=== PATIENT | female | born 1940 | race Caucasian/White ===

== ENCOUNTER → 2018-06-11 | Outpatient (CLI) | payer OTHER, MEDICARE ==
[~2018-06-11] MED LIST: ADVAIR 500/501 EA INH; CALCIUM 500+D1 EACH; COLACE100 MG PO; CYMBALTA30 MG PO; IPRATROPIU0.2 MG/1 M NEB; LASIX20 MG PO; LEVOTHYROXINE50 MCG PO; LISINOPRIL10 MG PO; LYRICA150 MG PO; METOPROLOL SUCC50 MG PO; NAPROXEN250 MG PO; NORCO 10-325 T1 EACH PO; PLAVIX75 MG PO; POTASSIUM CHLO20 ME1 PO; SIMVASTATIN40 MG PO; SPIRIVA18 MCG INH; ULTRAM50 MG PO; VESICARE5 MG PO
--- NOTE | 2018-06-11 14:37 | Diagnostic Imaging Report ---
EXAM: CT Chest without contrast Date/time: 06/11/2018 11:00 AM INDICATION: Chest pain, shortness of breath, query lung nodule. COMPARISON: None TECHNIQUE: Chest was scanned utilizing a multidetector helical scanner from the lung apex through the level of the adrenal glands without administration of IV contrast. Coronal and sagittal reformations were obtained. Routine protocol was performed. Dose modulation, iterative reconstruction, and/or weight based adjustment of the mA/kV was utilized to reduce the radiation dose to as low as reasonably achievable. RADIATION DOSE: Total DLP: 477 mGy*cm FINDINGS: LINES/ TUBES: None. LUNGS AND AIRWAYS: The central airways are patent. There is biapical pleural-parenchymal opacity. There are bilateral pulmonary nodules. These include a 3 mm solid pulmonary nodule in the right upper lobe on series 3, image 39 and a 5 mm solid pulmonary nodule in the middle lobe on image 69. There are bilateral calcified granulomas. There are patchy dependent atelectatic changes. PLEURA: The pleural spaces are clear. HEART AND MEDIASTINUM: The thyroid gland is normal. No mediastinal, hilar or axillary lymphadenopathy. No cardiomegaly. Trace pericardial effusion. Moderate atherosclerotic calcifications of the thoracic aorta, branch vessels, and coronary vessels. The main pulmonary artery is enlarged measuring up to 3.6 cm, suggestive of pulmonary arterial hypertension. UPPER ABDOMEN: Limited non-contrast views of the upper abdomen show no abnormality within the visualized liver spleen. Partially seen right adrenal nodule (5 HU), consistent with adrenal adenoma. BONES/SOFT TISSUES: No acute bony amount. Degenerative changes of the visualized spine. IMPRESSION: No evidence of acute intrathoracic abnormality on noncontrast CT. Biapical pleural-parenchymal opacity with bilateral calcified nodules, consistent with sequela of prior granulomatous disease. Right-sided noncalcified nodules measuring up to 5 mm. These may represent noncalcified granulomas. In a patient with no other risk factor for malignancy, no further follow-up is suggested. If there is history of smoking or other risk factor for malignancy, a optional chest CT at 12 months may be considered. Enlarged main pulmonary artery measuring up to 3.6 cm, suggestive of pulmonary arterial hypertension. Signed by: Dr. Nasima Koenig MD on 06/11/2018 2:33 PM
== END ==
LOC: CT 10:44
PROVIDERS: ATTEND Internal Medicine Critical Care Medicine
DX: R91.1 Solitary pulmonary nodule (principal)
CPT/HCPCS: 71250

== ENCOUNTER → 2018-07-09 | Outpatient (RCR) | payer MEDICARE, OTHER | LOC: PT 06-16 09:52 | PROVIDERS: ATTEND Internal Medicine Critical Care Medicine | DX: G35 Multiple sclerosis (principal); M25.552 Pain in left hip; M25.551 Pain in right hip; M62.81 Muscle weakness (generalized); R26.2 Difficulty in walking, not elsewhere classified | CPT/HCPCS: 97110 ×11; 97116 ×2; 97139; 97162; 97530 ×2; G8978; G8979 ==

== ENCOUNTER → 2018-07-29 | Outpatient (CLI) | payer OTHER ==
--- NOTE | 2018-07-30 13:12 | Diagnostic Imaging Report ---
EXAM: Modified barium swallow with Speech Pathologist INDICATION: ^[id number] ^1300 ^DYSPHAGIA COMPARISON: None available. RADIATION DOSE: Fluoroscopy Time: 2.3 min Dose (Kerma) Area Product: 4.7 Gycm2 Air Kerma (AK) value has been reviewed. It is below the limits set by the Radiation Protocol Committee (RPC) committee. FINDINGS: See impression IMPRESSION: Laryngeal penetration and overt aspiration upon administration of thin liquid barium consistencies. Please see speech pathology report for detailed description and recommendations. Signed by: Dr. Zion Richards M.D. on 07/30/2018 1:09 PM
== END ==
LOC: DX 12:27
PROVIDERS: ATTEND Internal Medicine Critical Care Medicine
DX: G35 Multiple sclerosis (principal); I69.898 Other sequelae of other cerebrovascular disease; R13.10 Dysphagia, unspecified; R49.0 Dysphonia; R47.1 Dysarthria and anarthria
CPT/HCPCS: 74230

== ENCOUNTER → 2018-08-06 | Outpatient (RCR) | payer MEDICARE, OTHER | LOC: PT 07-13 13:20 → ST 08-03 12:48 | PROVIDERS: ATTEND Internal Medicine Critical Care Medicine | DX: G35 Multiple sclerosis (principal); I69.80 Unspecified sequelae of other cerebrovascular disease; R13.11 Dysphagia, oral phase; M25.552 Pain in left hip; M25.551 Pain in right hip; M62.81 Muscle weakness (generalized); R26.2 Difficulty in walking, not elsewhere classified | CPT/HCPCS: 92523; 97139 ==

== ENCOUNTER 2018-09-03 10:57 | Outpatient (RCR) | payer MEDICARE, OTHER ==
--- NOTE | 2018-08-14 10:32 | NUR ---
ST NOTE: Pt called to cx today's speech therapy session. Next apt 08/18/18
--- NOTE | 2018-08-18 11:01 | NUR ---
ST NOTE: Pt NO SHOW for PT/ST sessions today. Staff to call and check pt status. Next session 08/20/18
--- NOTE | 2018-08-24 10:20 | NUR ---
ST NOTE: Pt NO SHOW for PT/ST sessions today. Staff to call and check pt status. Next session 08/25/18
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
== END 2018-09-06 ==
LOC: ST 10:57
PROVIDERS: ATTEND Internal Medicine Critical Care Medicine
DX: G35 Multiple sclerosis (principal); I69.898 Other sequelae of other cerebrovascular disease; R13.10 Dysphagia, unspecified; R49.0 Dysphonia; R47.1 Dysarthria and anarthria

== ENCOUNTER 2018-09-07 09:53 | Outpatient (RCR) | payer MEDICARE, OTHER ==
--- NOTE | 2018-09-08 09:19 | NUR ---
ST Note: Pt cancelled session scheduled for today due to illness.
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
== END 2018-10-06 ==
LOC: ST 09:53
PROVIDERS: ATTEND Internal Medicine Critical Care Medicine
DX: G35 Multiple sclerosis (principal); I69.898 Other sequelae of other cerebrovascular disease; R49.0 Dysphonia; R47.1 Dysarthria and anarthria; R13.10 Dysphagia, unspecified

== ENCOUNTER 2018-12-05 09:46 | Observation (INO) | payer MEDICARE, OTHER ==
[~2018-12-05] VITALS: Ht 177.8 cm; Wt 88.0 kg
--- OUTSIDE RECORDS SUMMARY | 2018-12-05 09:49 | XMS REPORT ---
Author Author [facility] Address Unknown Phone Unavailable Care Team Providers Care Reading Intervention Teacher Name Role Phone PHILLIP NEIL Unavailable Unavailable Payers Payer Name Policy Type Policy Number Effective Date Expiration Date Problems This patient has no known problems. Allergies, Adverse Reactions, Alerts Allergy Name Allergy Type Status Severity Reaction(s) Onset Date Inactive Date Treating Clinician Comments propoxyphene HCl DA Active U 2018-09-09 00:00:00 glycerin DA Active U 2018-09-09 00:00:00 Penicillins DA Active U 2018-09-09 00:00:00 Sulfa (Sulfonamide Antibiotics) DA Active U 2018-09-09 00:00:00 sodium lactate DA Active U 2018-09-09 00:00:00 iodine DA Active U 2018-09-09 00:00:00 morphine DA Active U 2018-09-09 00:00:00 aspirin DA Active U 2018-09-09 00:00:00 sodium phosphate DA Active U 2018-09-09 00:00:00 codeine DA Active U 2018-09-09 00:00:00 propoxyphene HCl DA Active U 2017-06-27 00:00:00 glycerin DA Active U 2017-06-27 00:00:00 Penicillins DA Active U 2017-06-27 00:00:00 Sulfa (Sulfonamide Antibiotics) DA Active U 2017-06-27 00:00:00 sodium lactate DA Active U 2017-06-27 00:00:00 iodine DA Active U 2017-06-27 00:00:00 morphine DA Active U 2017-06-27 00:00:00 codeine DA Active U 2017-06-27 00:00:00 aspirin DA Active U 2017-06-27 00:00:00 sodium phosphate DA Active U 2017-06-27 00:00:00 Medications This patient has no known medications. Results Test Description Test Time Test Comments Text Results Atomic Results Result Comments BASIC METABOLIC PANEL 2018-10-23 19:44:00 SODIUM (test code=NA) 141 mmol/L 136-145 POTASSIUM (test code=K) 4.3 mmol/L 3.5-5.1 CHLORIDE (test code=CL) 103.0 mmol/L 98-107 CARBON DIOXIDE (test code=CO2) 33.0 mmol/L 21-32 ANION GAP (test code=GAP) 9.3 10-20 GLUCOSE (test code=GLU) 93 mg/dL 74-106 BLOOD UREA NITROGEN (test code=BUN) 29 mg/dL 7-18 GLOMERULAR FILTRATION RATE (test code=GFR) > 60 mL/min >=60 Estimated GFR by using Modified MDRD formula.Chronic kidney disease is defined as either kidney damageor GFR <60 mL/min/1.73 m2 for >3 months. CREATININE (test code=CREAT) 0.90 mg/dL 0.55-1.02 Note change in reference range due to change in reagent. BUN/CREATININE RATIO (test code=BUN/CREA) 32.2 10-20 CALCIUM (test code=CA) 9.3 mg/dL 8.5-10.1 HEPATIC FUNCTION [id number] 19:44:00* Test Item Value Reference Range Comments TOTAL PROTEIN (test code=PROT) 7.0 gram/dL 6.4-8.2 ALBUMIN (test code=ALB) 3.5 g/dL 3.4-5.0 GLOBULIN (test code=GLOB) 3.5 gram/dL 2.7-4.2 ALBUMIN/GLOBULIN RATIO (test code=A/G) 1.0 0.75-1.50 BILIRUBIN TOTAL (test code=BILT) 0.30 mg/dL 0.0-1.0 BILIRUBIN DIRECT (test code=BILD) 0.06 mg/dL 0.0-0.20 SGOT/AST (test code=AST) 24 IUnit/L 15-37 SGPT/ALT (test code=ALT) 26 IUnit/L 12-78 ALKALINE PHOSPHATASE TOTAL (test code=ALKP) 67 IUnit/L 45-117 Note change in reference range due to change in reagent. [id number] 19:44:00* Test Item Value Reference Range Comments TROPONIN-I (test code=TROPI) <0.015 ng/mL 0-0.045 URINALYSIS [id number] 19:41:00* Test Item Value Reference Range Comments UA COLOR (test code=COLU) Light-Yellow YELLOW UA APPEARANCE (test code=APPU) CLEAR CLEAR UA GLUCOSE DIPSTICK (test code=DGLUU) NEGATIVE mg/dL NEGATIVE UA BILIRUBIN DIPSTICK (test code=BILU) NEGATIVE mg/dL NEGATIVE UA KETONE DIPSTICK (test code=KETU) NEGATIVE mg/dL NEGATIVE UA SPECIFIC GRAVITY (test code=SGU) 1.015 1.001-1.035 UA BLOOD DIPSTICK (test code=YANI) Negative mg/dL NEGATIVE UA PH DIPSTICK (test code=EVI) 5.0 5.0-8.0 UA PROTEIN DIPSTICK (test code=PROU) NEGATIVE mg/dL NEGATIVE UA UROBILINIOGEN DIPSTICK (test code=URO) Normal mg/dL NEGATIVE UA NITRITE DIPSTICK (test code=SAGAR) NEGATIVE NEGATIVE UA LEUKOCYTE ESTERASE W REFLEX (test code=LEUUR) 25 John/uL (Trace) John/uL NEGATIVE UA WBC (test code=WBCU) 0-5 per HPF 0-5 UA RBC (test code=RBCU) 0-2 #/HPF 0-5 UA EPITHELIAL CELLS (test code=EPIU) FEW per HPF FEW UA BACTERIA (test code=BACU) FEW #/HPF NONE UA MUCUS (test code=MUCU) FEW #/LPF FEW Urine Source? Clean CatchURINALYSIS [id number] 19:39:00* Test Item Value Reference Range Comments UA COLOR (test code=COLU) Light-Yellow YELLOW UA APPEARANCE (test code=APPU) CLEAR CLEAR UA GLUCOSE DIPSTICK (test code=DGLUU) NEGATIVE mg/dL NEGATIVE UA BILIRUBIN DIPSTICK (test code=BILU) NEGATIVE mg/dL NEGATIVE UA KETONE DIPSTICK (test code=KETU) NEGATIVE mg/dL NEGATIVE UA SPECIFIC GRAVITY (test code=SGU) 1.015 1.001-1.035 UA BLOOD DIPSTICK (test code=YANI) Negative mg/dL NEGATIVE UA PH DIPSTICK (test code=EVI) 5.0 5.0-8.0 UA PROTEIN DIPSTICK (test code=PROU) NEGATIVE mg/dL NEGATIVE UA UROBILINIOGEN DIPSTICK (test code=URO) Normal mg/dL NEGATIVE UA NITRITE DIPSTICK (test code=SAGAR) NEGATIVE NEGATIVE UA LEUKOCYTE ESTERASE W REFLEX (test code=LEUUR) 25 John/uL (Trace) John/uL NEGATIVE UA WBC (test code=WBCU) per HPF 0-5 UA RBC (test code=RBCU) per HPF 0-5 UA EPITHELIAL CELLS (test code=EPIU) per HPF Few UA BACTERIA (test code=BACU) per HPF NONE Urine Source? Clean CatchBASIC METABOLIC [id number] 19:38:00* Test Item Value Reference Range Comments SODIUM (test code=NA) 141 mmol/L 136-145 POTASSIUM (test code=K) 4.3 mmol/L 3.5-5.1 CHLORIDE (test code=CL) 103.0 mmol/L 98-107 CARBON DIOXIDE (test code=CO2) mmol/L 21-32 ANION GAP (test code=GAP) 10-20 GLUCOSE (test code=GLU) mg/dL 74-106 BLOOD UREA NITROGEN (test code=BUN) mg/dL 7-18 GLOMERULAR FILTRATION RATE (test code=GFR) mL/min >=60 CREATININE (test code=CREAT) mg/dL 0.55-1.02 BUN/CREATININE RATIO (test code=BUN/CREA) 10-20 CALCIUM (test code=CA) mg/dL 8.5-10.1 HEPATIC FUNCTION [id number] 19:38:00* Test Item Value Reference Range Comments TOTAL PROTEIN (test code=PROT) gram/dL 6.4-8.2 ALBUMIN (test code=ALB) g/dL 3.4-5.0 GLOBULIN (test code=GLOB) gram/dL 2.7-4.2 ALBUMIN/GLOBULIN RATIO (test code=A/G) 0.75-1.50 BILIRUBIN TOTAL (test code=BILT) mg/dL 0.0-1.0 BILIRUBIN DIRECT (test code=BILD) mg/dL 0.0-0.20 SGOT/AST (test code=AST) IUnit/L 15-37 SGPT/ALT (test code=ALT) IUnit/L 12-78 ALKALINE PHOSPHATASE TOTAL (test code=ALKP) IUnit/L 45-117 [id number] 19:38:00* Test Item Value Reference Range Comments TROPONIN-I (test code=TROPI) ng/mL 0-0.045 CBC W/AUTO [id number] 19:21:00* Test Item Value Reference Range Comments WHITE BLOOD CELL (test code=WBC) 7.9 K/mm3 4.5-12.5 RED BLOOD CELL (test code=RBC) 4.34 mill/mm3 3.7-5.2 HEMOGLOBIN (test code=HGB) 13.6 gram/dL 11.5-15.5 HEMATOCRIT (test code=HCT) 43.0 % 36.0-46.0 MEAN CELL VOLUME (test code=MCV) 99.1 fL 80-98 MEAN CELL HGB (test code=MCH) 31.3 picogram 27.0-33.0 MEAN CELL HGB CONCETRATION (test code=MCHC) 31.6 gram/dL 33.0-36.0 RED CELL DISTRIBUTION WIDTH (test code=RDW) 13.6 % 11.6-16.2 RED CELL DISTRIBUTION WIDTH SD (test code=RDW-SD) 49.7 fL 37.0-51.0 PLATELET COUNT (test code=PLT) 154 K/mm3 150-450 MEAN PLATELET VOLUME (test code=MPV) 11.0 fL 6.7-11.0 NEUTROPHIL % (test code=NT%) 51.4 % 39.0-69.0 IMMATURE GRANULOCYTE % (test code=IG%) 0.1 % 0.0-5.0 LYMPHOCYTE % (test code=LY%) 36.7 % 25.0-55.0 MONOCYTE % (test code=MO%) 9.0 % 0.0-10.0 EOSINOPHIL % (test code=EO%) 2.3 % 0.0-5.0 BASOPHIL % (test code=BA%) 0.5 % 0.0-1.0 NUCLEATED RBC % (test code=NRBC%) 0.0 % 0-0 NEUTROPHIL # (test code=NT#) 4.08 K/mm3 1.8-7.7 IMMATURE GRANULOCYTE # (test code=IG#) 0.01 x10 3/uL 0-0.03 LYMPHOCYTE # (test code=LY#) 2.91 K/mm3 1.0-5.0 MONOCYTE # (test code=MO#) 0.71 K/mm3 0-0.8 EOSINOPHIL # (test code=EO#) 0.18 K/mm3 0.0-0.5 BASOPHIL # (test code=BA#) 0.04 K/mm3 0.0-0.2 NUCLEATED RBC # (test code=NRBC#) 0.00 K/mm3 0.0-0.1 MANUAL DIFF REQUIRED (test code=MDIFF) NO - XR PELVIS 1/2 [id number] 18:46:00 FAX: Rose Starkey MD [phone] [place]: St: [facility] FAX: Dawson Arias DO Name: LEENA ESTRADA [facility] : 1940 Age/S: 78/F [address] [facility] Unit #: [id number] Loc: [place] [address] Phys: Dawson Arias DO Acct: [id number] Dis Date: Status: REG ER PHONE #: [phone] Exam Date: 10/23/2018 1815 FAX #: [phone] Reason: fall EXAMS: CPT CODE: [id number] XR PELVIS 1/2 VIEWS 71302 REASON FOR EXAM: fall EXAM ORDER DATE: 5:44 PM Ordering MSánchez: Dawson Arias DO PROC EDURE: - XR PELVIS 1/2 VIEWS FINDINGS: 1 view of the pelvis was o btained. The osseous structures are unremarkable in size and shape with a gamma nail present in the proximal left femur. The joint spaces are mainta ined. No evidence of fracture. There is normal alignment of the hip joint . The sacroiliac joints are grossly intact IMPRES JANETH: Unremarkable pelvis Electronically Signed by Megan Hudson on 0 10/23/2018 at 1846 Reported and signed by: Nj Hudson M.D. CC: Rose Gilmore MD; Dawson Arias DO Technologist: Lupis Soto(Marianela) Trnscrd Da te/Time/By: 10/23/2018 (1845) : By: DanielL Orig Print D/T: S: 10/23 (1848) PAGE 1 Signed Report - XR SACRUM/COCCYX 2 + [id number] 18:45:00 FAX: Rose Starkey MD [phone] [place]: St: [facility] FAX: Dawson Arias DO Name: LEENA ESTRADA [facility] : 1940 Age/S: 78/F [address] [facility] Unit #: [id number] Loc: [place] [address] Phys: Dawson Arias DO Acct: [id number] Dis Date: Status: REG ER PHONE #: [phone] Exam Date: 10/23/2018 1810 FAX #: [phone] Reason: fall EXAMS: CPT CODE: [id number] XR SACRUM/COCCYX 2 + V 28939 REASON FOR EXAM: fall EXAM ORDER DATE: 10/23/2018 5:44 PM Ordering Megan: Dawson Arias DO PROCEDURE: - XR SACRUM/COCCYX 2 + V FINDINGS: 3 views of the sacrum and coccyx were obtained. The osseous structures are unrema rkable in size and shape. The sacroiliac joints are maintained. No eviden ce of fracture. IMPRESSION: Unremarkable sacrum and coccyx at 1845 Reported and signed by: Nj Hudson M.D. CC: Rose Fabian MD; Dawson Arias DO Technologist: Lupis Soto(Marianela) Trnscrd Date/Time/By: 10/23/2018 (1844 ) : By: TimoteoVTL Orig Print D/T: S: 10/23/2018 (6751) PAGE 1 Signed Report - XR CHEST 1 [id number] 18:33:00 FAX: Rose Starkey MD [phone] [place]: St: REG FAX: Dawson Arias DO Name: LEENA ESTRADA [facility] : 1940 Age/S: 78/F [address] [facility] Unit #: [id number] Loc: [place] [address] Phys: Dawson Arias DO Acct: [id number] Dis Date: Status: REG ER PHONE #: [phone] Exam Date: 10/23/2018 1805 FAX #: [phone] Reason: Altered Mental Status EXAMS: CPT CODE: [id number] XR CHEST 1 V 62849 REASON FOR EXAM: Altered Mental Status Exam Order Date: 10/23/2018 5:44 PM Ordering Megan: Dawson Arias DO PROCEDURE: - XR CHEST 1 V COMPARISON: AP chest x-ray September 09, 2018 FINDINGS: Lung volumes are slightly diminish ed and there are subsegmental atelectatic changes in the lung bases, more pronounced on the left side. The upper lungs are clear. The costophrenic s ulci are sharp. The cardiomediastinal silhouette is slightly promi nent but stable in size. Degenerative changes of the left ac romioclavicular joint and other musculoskeletal findings are stable. IMPRESSION: Low lung volumes with bibasilar subsegmental atel ectasis, worse on the left side. at 1833 Reported and signed b y: Gilberto Salgado MD CC: Rose Gilmore MD; Dawson Arias DO Technologist: Lupis Soto(Marianela) Trnscrd Date/Time/By: 10/23/2018 (1832) : By: [email or web address] Orig Print D/T : S: 10/23/2018 (1835) PAGE 1 Sig lisa Report - CT HEAD/BRAIN W/O [id number] 18:01:00 Name: LEENA ESTRADA [facility] : 1940 Age/S: 78 / F [address] [facility] Unit #: [id number] Loc: [place] [address] Phys: Dawson Arias DO Acct: [id number] Dis Date: Status: REG ER PHONE #: [phone] Exam Date: 10/23/2018 1751 FAX #: [phone] Reason: Altered Mental Status EXAMS: CPT CODE: [id number] CT HEAD/BRAIN W/O CONT 35390 REASON FOR EXAM: Altered Mental Status EXAM ORDER DATE: 10/23/2018 5:44 PM Ordering Megan: Dawson Arias DO PROCEDURE: - CT HEAD/BRAIN W/O CONT COMPARISON: 09/09/2018 FINDINGS: CT images of the brain were obtained without IV contrast. Dose modulation, iterative reconstruction, and/or weight based adjustment of the MA/KV was utilized to reduce the radiation dose to as low as reasonably achievable. The brain parenchyma is within normal limits. The sequeira-white matter delineation is unremarkable. The ventricles, cisterns, and sulci are unremarkable. There is no evidence of hemorrhage, mass, mass effect. There is no evidence of acute or old infarct. The calvarium is intact. IMPRESSION: Unremarkable brain. at 1801 Reported and signed by: Nj Hudson M.D. CC: Rose Gilmore MD; Dawson Arias DO Technologist:Taisha Whitehead RT(R); ARSHAD Mason CTDI: DLP: Trnscb Date/Time: 10/23/2018 (1800) Lynne Orig Print D/T: S: 10/23/2018 (2678) PAGE 1 Signed Report - XR L-SPINE 4 + [id number] 10:38:00 FAX: Rose Starkey MD [phone] [place]: St: [facility] FAX: Van Pickard MD [phone] Name: SEANLEENA SEN [facility] : 1940 Age/S: 78/F [address] [facility] Unit #: [id number] Loc: [address] [place] [address] Phys: Van Mondragon MD Acct: [id number] Dis Date: Status: ADM IN PHONE #: [phone] Exam Date: 09/10/2018 1020 FAX #: [phone] Reason: pain EXAMS: CPT CODE: [id number] XR L-SPINE 4 + VIEWS 69157 HISTORY: Pain. COMPARISON: None available. 3 views of the left hip: Gamma nail in good position within the left hip. Healing intertrochanteric fracture. Narrowed hip joint without AVN. Pelvic ring appears intact on a single view. Symphysis is well op posed. SI joints are unremarkable. Narrowed right hip joint is well. DJD o f the lower lumbar spine. Soft tissues and mineralization are normal. IMPRESSION: Gamma nail in good position within the left hip without fracture. Narrowed hip joint without AVN. Lumbar spine series, 5 views: Vertebral body h eights are maintained. Grade 2 anterolisthesis of L5 over S1. No obvious spondylolysis is visible but difficult to assess due to sclerosis. Ante rior marginal osteophytes. Vascular calcifications. Facet arthropathy th roughout the lumbar spine with posterolateral hypertrophic changes at L4 -L5 and L5-S1 level especially. IMPRESSION: Grade 2 anterolisthesis of L5 over S1 without acute fracture or spondylolysis. Vertebral body heights are maintained. DJD. Mode berumen Signed by Megan Gramajo on 09/10/2018 at 1038 Reported and signed by: Varghese Gramajo M.D. CC: Rose Gilmore MD; Van Mondragon Technologist: PARADISE PEARCE, (R); Alanna Soto(R) Trnwyrd Date/Time/By: 09/10/2018 (1038) : By: [email or web address] Orig Print D/T: S: 09/10/2018 (9933) PAGE 1 Signed Report - XR HIP W/PEL UNI 2+V [id number] 10:38:00 FAX: Rose Starkey MD [phone] [place]: St: [facility] FAX: Van Pickard MD [phone] Name: LEENA ESTRADA [facility] : 1940 Age/S: 78/F [address] [facility] Unit #: [id number] Loc: [address] [place] [address] Phys: Van Mondragon MD Acct: [id number] Dis Date: Status: ADM IN PHONE #: [phone] Exam Date: 09/10/2018 1010 FAX #: [phone] Reason: pain EXAMS: CPT CODE: [id number] XR HIP W/PEL UNI 2+[place] [address] HISTORY: Pain. COMPARISON: None available. 3 views of the left hip: Gamma nail in good position within the left hip. Healing intertrochanteric fracture. Narrowed hip joint without AVN. Pelvic ring appears intact on a single view. Symphysis is well opposed. SI joints are unremarkable. Narrowed right hip joint is well. DJD of the lower lumbar spine. Soft tissues and mineralization are normal. IMPRESSION: Gamma nail in good position within the left hip without fracture. Narrowed hip joint without AVN. Lumbar spine series, 5 views: Vertebral body heights are maintained. Grade 2 anterolisthesis of L5 over S1. No obvious spondylolysis is visible but difficult to assess due to sclerosis. Ante rior marginal osteophytes. Vascular calcifications. Facet arthropathy th roughout the lumbar spine with posterolateral hypertrophic changes at L4 -L5 and L5-S1 level especially. IMPRESSION: Grade 2 anterolisthesis of L5 over S1 without acute fracture or spondylolysis. Vertebral body heights are maintained. DJD. Mode berumen Signed by Megan Gramajo on 09/10/2018 at 1038 Reported and signed by: Varghese Gramajo M.D. CC: Rose Gilmore MD; Van Mondragon Technologist: RT RADHA(R); Alanna Soto(R) Trnscrd Date/Time/By: 09/10/2018 (1038) : By: [email or web address] Orig Print D/T: S: 09/10/2018 (1041) PAGE 1 Signed Report BASIC METABOLIC PANEL 2018-09-10 05:28:00* Test Item Value Reference Range Comments SODIUM (test code=NA) 143 mmol/L 136-145 POTASSIUM (test code=K) 4.8 mmol/L 3.5-5.1 CHLORIDE (test code=CL) 108.0 mmol/L 98-107 CARBON DIOXIDE (test code=CO2) 32.0 mmol/L 21-32 ANION GAP (test code=GAP) 7.8 10-20 GLUCOSE (test code=GLU) 103 mg/dL 74-106 BLOOD UREA NITROGEN (test code=BUN) 21 mg/dL 7-18 GLOMERULAR FILTRATION RATE (test code=GFR) > 60 mL/min >=60 Estimated GFR by using Modified MDRD formula.Chronic kidney disease is defined as either kidney damageor GFR <60 mL/min/1.73 m2 for >3 months. CREATININE (test code=CREAT) 0.80 mg/dL 0.55-1.02 Note change in reference range due to change in reagent. BUN/CREATININE RATIO (test code=BUN/CREA) 26.3 10-20 CALCIUM (test code=CA) 8.6 mg/dL 8.5-10.1 BASIC METABOLIC [id number] 05:23:00* Test Item Value Reference Range Comments SODIUM (test code=NA) 143 mmol/L 136-145 POTASSIUM (test code=K) 4.8 mmol/L 3.5-5.1 CHLORIDE (test code=CL) 108.0 mmol/L 98-107 CARBON DIOXIDE (test code=CO2) mmol/L 21-32 ANION GAP (test code=GAP) 10-20 GLUCOSE (test code=GLU) mg/dL 74-106 BLOOD UREA NITROGEN (test code=BUN) mg/dL 7-18 GLOMERULAR FILTRATION RATE (test code=GFR) mL/min >=60 CREATININE (test code=CREAT) mg/dL 0.55-1.02 BUN/CREATININE RATIO (test code=BUN/CREA) 10-20 CALCIUM (test code=CA) mg/dL 8.5-10.1 CBC W/AUTO [id number] 05:02:00* Test Item Value Reference Range Comments WHITE BLOOD CELL (test code=WBC) 8.1 K/mm3 4.5-12.5 RED BLOOD CELL (test code=RBC) 4.71 mill/mm3 3.7-5.2 HEMOGLOBIN (test code=HGB) 14.3 gram/dL 11.5-15.5 HEMATOCRIT (test code=HCT) 48.3 % 36.0-46.0 MEAN CELL VOLUME (test code=MCV) 102.5 fL 80-98 MEAN CELL HGB (test code=MCH) 30.4 picogram 27.0-33.0 MEAN CELL HGB CONCETRATION (test code=MCHC) 29.6 gram/dL 33.0-36.0 RED CELL DISTRIBUTION WIDTH (test code=RDW) 13.6 % 11.6-16.2 RED CELL DISTRIBUTION WIDTH SD (test code=RDW-SD) 52.4 fL 37.0-51.0 PLATELET COUNT (test code=PLT) 164 K/mm3 150-450 MEAN PLATELET VOLUME (test code=MPV) 10.5 fL 6.7-11.0 NEUTROPHIL % (test code=NT%) 41.7 % 39.0-69.0 IMMATURE GRANULOCYTE % (test code=IG%) 0.2 % 0.0-5.0 LYMPHOCYTE % (test code=LY%) 45.9 % 25.0-55.0 MONOCYTE % (test code=MO%) 9.6 % 0.0-10.0 EOSINOPHIL % (test code=EO%) 2.1 % 0.0-5.0 BASOPHIL % (test code=BA%) 0.5 % 0.0-1.0 NUCLEATED RBC % (test code=NRBC%) 0.0 % 0-0 NEUTROPHIL # (test code=NT#) 3.38 K/mm3 1.8-7.7 IMMATURE GRANULOCYTE # (test code=IG#) 0.02 x10 3/uL 0-0.03 LYMPHOCYTE # (test code=LY#) 3.72 K/mm3 1.0-5.0 MONOCYTE # (test code=MO#) 0.78 K/mm3 0-0.8 EOSINOPHIL # (test code=EO#) 0.17 K/mm3 0.0-0.5 BASOPHIL # (test code=BA#) 0.04 K/mm3 0.0-0.2 NUCLEATED RBC # (test code=NRBC#) 0.00 K/mm3 0.0-0.1 CBC W/AUTO [id number] 05:00:00* Test Item Value Reference Range Comments WHITE BLOOD CELL (test code=WBC) K/mm3 4.5-12.5 RED BLOOD CELL (test code=RBC) mill/mm3 3.7-5.2 HEMOGLOBIN (test code=HGB) 14.3 gram/dL 11.5-15.5 HEMATOCRIT (test code=HCT) % 36.0-46.0 MEAN CELL VOLUME (test code=MCV) fL 80-98 MEAN CELL HGB (test code=MCH) picogram 27.0-33.0 MEAN CELL HGB CONCETRATION (test code=MCHC) gram/dL 33.0-36.0 RED CELL DISTRIBUTION WIDTH (test code=RDW) % 11.6-16.2 RED CELL DISTRIBUTION WIDTH SD (test code=RDW-SD) fL 37.0-51.0 PLATELET COUNT (test code=PLT) K/mm3 150-450 MEAN PLATELET VOLUME (test code=MPV) fL 6.7-11.0 NEUTROPHIL % (test code=NT%) % 39.0-69.0 IMMATURE GRANULOCYTE % (test code=IG%) % 0.0-5.0 LYMPHOCYTE % (test code=LY%) % 25.0-55.0 MONOCYTE % (test code=MO%) % 0.0-10.0 EOSINOPHIL % (test code=EO%) % 0.0-5.0 BASOPHIL % (test code=BA%) % 0.0-1.0 NEUTROPHIL # (test code=NT#) K/mm3 1.8-7.7 LYMPHOCYTE # (test code=LY#) K/mm3 1.0-5.0 MONOCYTE # (test code=MO#) K/mm3 0-0.8 EOSINOPHIL # (test code=EO#) K/mm3 0.0-0.5 BASOPHIL # (test code=BA#) K/mm3 0.0-0.2 THYROID PROFILE [id number] 20:50:00* Test Item Value Reference Range Comments T3 UPTAKE (test code=T3UP) 32.0 % 30.0-40.0 T4 (THYROXINE) (test code=T4) 5.6 ug/dL 4.5-13.9 T7 (FREE THYROXINE INDEX) (test code=T7) 1.79 FTI 1.3-5.1 THYROID STIMULATING HORMONE (test code=TSH) 2.560 uIU/mL 0.36-3.74 TSH REFERENCE RANGES: EUTHYROID: 0.35 - 4.3 mIU/mL HYPO : > 5.5 mIU/mL HYPER : < 0.35 mIU/mL CREATINE KINASE (CK)2018-09-09 20:42:00* Test Item Value Reference Range Comments CREATINE KINASE (CK) (test code=CK) 65 IUnit/L 26-208 [id number] 20:42:00* Test Item Value Reference Range Comments TROPONIN-I (test code=TROPI) <0.015 ng/mL 0-0.045 COMMENTS TO COMPLIANCE MGR: COLLECT 3 HOURS AFTER PREVIOUS [id number] 17:04:00* Test Item Value Reference Range Comments TROPONIN-I (test code=TROPI) <0.015 ng/mL 0-0.045 COMMENTS TO COMPLIANCE MGR: COLLECT 3 HOURS AFTER PREVIOUS SAMPLEURINALYSIS [id number] 16:25:00* Test Item Value Reference Range Comments UA COLOR (test code=COLU) YELLOW YELLOW UA APPEARANCE (test code=APPU) SLIGHTLY CLOUDY CLEAR UA GLUCOSE DIPSTICK (test code=DGLUU) NEGATIVE mg/dL NEGATIVE UA BILIRUBIN DIPSTICK (test code=BILU) NEGATIVE mg/dL NEGATIVE UA KETONE DIPSTICK (test code=KETU) NEGATIVE mg/dL NEGATIVE UA SPECIFIC GRAVITY (test code=SGU) 1.014 1.001-1.035 UA BLOOD DIPSTICK (test code=YANI) 3+ (Large) mg/dL NEGATIVE UA PH DIPSTICK (test code=EVI) 6.0 5.0-8.0 UA PROTEIN DIPSTICK (test code=PROU) NEGATIVE mg/dL NEGATIVE UA UROBILINIOGEN DIPSTICK (test code=URO) NEGATIVE mg/dL NEGATIVE UA NITRITE DIPSTICK (test code=SAGAR) POSITIVE NEGATIVE UA LEUKOCYTE ESTERASE W REFLEX (test code=LEUUR) 2+ John/uL NEGATIVE UA WBC (test code=WBCU) 11-20 per HPF 0-5 UA RBC (test code=RBCU) >20 #/HPF 0-5 UA EPITHELIAL CELLS (test code=EPIU) FEW per HPF FEW UA BACTERIA (test code=BACU) MODERATE #/HPF NONE UA MUCUS (test code=MUCU) FEW #/LPF FEW Urine Source? Clean CatchURINALYSIS [id number] 16:22:00* Test Item Value Reference Range Comments UA COLOR (test code=COLU) YELLOW YELLOW UA APPEARANCE (test code=APPU) SLIGHTLY CLOUDY CLEAR UA GLUCOSE DIPSTICK (test code=DGLUU) NEGATIVE mg/dL NEGATIVE UA BILIRUBIN DIPSTICK (test code=BILU) NEGATIVE mg/dL NEGATIVE UA KETONE DIPSTICK (test code=KETU) NEGATIVE mg/dL NEGATIVE UA SPECIFIC GRAVITY (test code=SGU) 1.014 1.001-1.035 UA BLOOD DIPSTICK (test code=YANI) 3+ (Large) mg/dL NEGATIVE UA PH DIPSTICK (test code=EVI) 6.0 5.0-8.0 UA PROTEIN DIPSTICK (test code=PROU) NEGATIVE mg/dL NEGATIVE UA UROBILINIOGEN DIPSTICK (test code=URO) NEGATIVE mg/dL NEGATIVE UA NITRITE DIPSTICK (test code=SAGAR) POSITIVE NEGATIVE UA LEUKOCYTE ESTERASE W REFLEX (test code=LEUUR) 2+ John/uL NEGATIVE UA WBC (test code=WBCU) per HPF 0-5 Urine Source? Clean CatchB-TYPE NATRIURETIC [id number] 15:35:00* Test Item Value Reference Range Comments B-TYPE NATRIURETIC PEPTIDE (test code=BNP) 11.56 pgram/mL 0-100 BASIC METABOLIC [id number] 13:14:00* Test Item Value Reference Range Comments SODIUM (test code=NA) 141 mmol/L 136-145 POTASSIUM (test code=K) 4.6 mmol/L 3.5-5.1 CHLORIDE (test code=CL) 104.0 mmol/L 98-107 CARBON DIOXIDE (test code=CO2) 31.0 mmol/L 21-32 ANION GAP (test code=GAP) 10.6 10-20 GLUCOSE (test code=GLU) 112 mg/dL 74-106 BLOOD UREA NITROGEN (test code=BUN) 23 mg/dL 7-18 GLOMERULAR FILTRATION RATE (test code=GFR) > 60 mL/min >=60 Estimated GFR by using Modified MDRD formula.Chronic kidney disease is defined as either kidney damageor GFR <60 mL/min/1.73 m2 for >3 months. CREATININE (test code=CREAT) 0.80 mg/dL 0.55-1.02 Note change in reference range due to change in reagent. BUN/CREATININE RATIO (test code=BUN/CREA) 28.8 10-20 CALCIUM (test code=CA) 9.9 mg/dL 8.5-10.1 HEPATIC FUNCTION [id number] 13:14:00* Test Item Value Reference Range Comments TOTAL PROTEIN (test code=PROT) 7.3 gram/dL 6.4-8.2 ALBUMIN (test code=ALB) 4.0 g/dL 3.4-5.0 GLOBULIN (test code=GLOB) 3.3 gram/dL 2.7-4.2 ALBUMIN/GLOBULIN RATIO (test code=A/G) 1.2 0.75-1.50 BILIRUBIN TOTAL (test code=BILT) 0.70 mg/dL 0.0-1.0 BILIRUBIN DIRECT (test code=BILD) 0.17 mg/dL 0.0-0.20 SGOT/AST (test code=AST) 25 IUnit/L 15-37 SGPT/ALT (test code=ALT) 33 IUnit/L 12-78 ALKALINE PHOSPHATASE TOTAL (test code=ALKP) 66 IUnit/L 45-117 Note change in reference range due to change in reagent. [id number] 13:14:00* Test Item Value Reference Range Comments TROPONIN-I (test code=TROPI) <0.015 ng/mL 0-0.045 PROTHROMBIN [id number] 13:03:00* Test Item Value Reference Range Comments PROTHROMBIN TIME PATIENT (test code=PTP) 11.3 seconds 9.0-14.0 INTERNATIONAL NORMAL RATIO (test code=INR) 1.0 0.8-1.2 The therapeutic range for oral anticoagulant therapy formost indications is an international normalized ratio (INR)of between 2.0 and 3.0. The recommended therapeutic INRrange for various clinical situations is listed below: Clinical Situation INR range Pulmonary e mbolism treatment (2.0-3.0)Venous thrombosis treatmentVenous thrombosis prophylaxis (high risk surgery)Prevention of systemic embolism from: Acute myocardial infarction Valvular heart disease Atrial fibrillation Mechanical prosthetic heart valves (2.5-3.5) IS PATIENT ON ANTICOAGULANTS? NTHROMBOPLASTIN TIME [id number] 13:03:00* Test Item Value Reference Range Comments THROMBOPLASTIN TIME PARTIAL (test code=PTT) 24.3 seconds 25.0-36.5 IS PATIENT ON ANTICOAGULANTS? NCBC W/AUTO [id number] 12:41:00* Test Item Value Reference Range Comments WHITE BLOOD CELL (test code=WBC) 8.2 K/mm3 4.5-12.5 RED BLOOD CELL (test code=RBC) 5.11 mill/mm3 3.7-5.2 HEMOGLOBIN (test code=HGB) 16.0 gram/dL 11.5-15.5 HEMATOCRIT (test code=HCT) 50.2 % 36.0-46.0 MEAN CELL VOLUME (test code=MCV) 98.2 fL 80-98 MEAN CELL HGB (test code=MCH) 31.3 picogram 27.0-33.0 MEAN CELL HGB CONCETRATION (test code=MCHC) 31.9 gram/dL 33.0-36.0 RED CELL DISTRIBUTION WIDTH (test code=RDW) 13.6 % 11.6-16.2 RED CELL DISTRIBUTION WIDTH SD (test code=RDW-SD) 50.0 fL 37.0-51.0 PLATELET COUNT (test code=PLT) 159 K/mm3 150-450 MEAN PLATELET VOLUME (test code=MPV) 10.6 fL 6.7-11.0 NEUTROPHIL % (test code=NT%) 57.0 % 39.0-69.0 IMMATURE GRANULOCYTE % (test code=IG%) 0.4 % 0.0-5.0 LYMPHOCYTE % (test code=LY%) 34.2 % 25.0-55.0 MONOCYTE % (test code=MO%) 6.9 % 0.0-10.0 EOSINOPHIL % (test code=EO%) 0.9 % 0.0-5.0 BASOPHIL % (test code=BA%) 0.6 % 0.0-1.0 NUCLEATED RBC % (test code=NRBC%) 0.0 % 0-0 NEUTROPHIL # (test code=NT#) 4.68 K/mm3 1.8-7.7 IMMATURE GRANULOCYTE # (test code=IG#) 0.03 x10 3/uL 0-0.03 LYMPHOCYTE # (test code=LY#) 2.81 K/mm3 1.0-5.0 MONOCYTE # (test code=MO#) 0.57 K/mm3 0-0.8 EOSINOPHIL # (test code=EO#) 0.07 K/mm3 0.0-0.5 BASOPHIL # (test code=BA#) 0.05 K/mm3 0.0-0.2 NUCLEATED RBC # (test code=NRBC#) 0.00 K/mm3 0.0-0.1 MANUAL DIFF REQUIRED (test code=MDIFF) NO - XR CHEST 1 [id number] 12:34:00 FAX: Rose Starkey MD [phone] [place]: St: REG FAX: Lev Leung MD [phone] Name: LEENA ESTRADA [facility] : 1940 Age/S: 78/F [address] [facility] Unit #: [id number] Loc: [place] [address] Phys: Lev Leung MD Acct: [id number] Dis Date: Status: REG ER PHONE #: [phone] Exam Date: 09/09/2018 1225 FAX #: [phone] Reason: Altered Mental Status EXAMS: CPT CODE: [id number] XR CHEST 1 V 81432 HISTORY: Confusion. COMPARISON: Chest x-ray from February 03, 2017. No acute infiltrates, effusion or congestion is noted. Scarring in both lung bases. The cardiac and mediastinal silhouette are within normal limits. IMPRESSION: No acute infiltrates, effusion or congestion. at 1234 Reported and signed by: Varghese Gramajo M.D. CC: Rose Gilmore MD; Lev Leung MD Technologist: Alanna Mirza) Trnscrd Date/Time/By: 09/09/2018 (7392) : By: [email or web address] Orig Print D/T: S: 09/09/2018 (1080) PAGE 1 Signed Report - CT HEAD/BRAIN W/O [id number] 12:27:00 Name: LEENA ESTRADA [facility] : 1940 Age/S: 78 / F [facility] Unit #: [id number] Loc: [place] [address] Phys: Lev Leung MD Acct: [id number] Dis Date: Status: REG ER PHONE #: [phone] Exam Date: 09/09/2018 1207 FAX #: [phone] Reason: Altered Mental Status EXAMS: CPT CODE: [id number] CT HEAD/BRAIN W/O CONT 14094 HISTORY: Confusion. COMPARISON: July 20162015. CT brain without contrast: Automated exposure control. No acute intracranial bleeds or extra-axial collections are noted. No acute territorial vascular infarction is noted. The sulci, gyri, ventricles and subarachnoid spaces and the basilar cisterns are normal for patient's age. No herniation or hydrocephalus or midline shift is noted. Mild periventricular ischemic gliosis is noted. Age-appropriate atrophy is noted as well. Portions of the visualized paranasal sinuses are normal. Extensive sclerosis of the mastoid air cells with under pneumatization bilaterally. No obvious bony calvarial defect is noted. IMPRESSION: No acute intracranial bleeds or extra-axial collections. No acute territorial vascular infarction. No herniation or hydrocephalus or midline shift. Chronic white matter ischemic disease and atrophy . at 1227 Reported and signed by: Varghese Gramajo M.D. CC: Rose Gilmore MD; Lev Leung MD Technologist:Sergio Quarles RT(R),(MR),(CT) CTDI: DLP: Trnscb Date/Time: 09/09/2018 (1227) t.[email or web address] Orig Print D/T: S: 09/09/2018 (1230) CTDI: DLP: PAGE 1 Signed Report MODIFIED BA. JETT 2018-07-30 13:08:00 [place] [address] Patient Name: WILVER ESTRADA MR #: [id number] : 1940 Age/Sex: 78/F Req #: [id number] Adm Physician: Ordered by: PHILLIP NEIL MD Report #: [id number] Location: DX Room/Bed: Procedure: DX/MODIF IED BA. SWALLOW Exam Date: 07/29/18 Exam Time: 1300 REPORT STATUS: Signed EXAM: Melida fied barium swallow with Speech Pathologist INDICATION: [id number] 1 300 DYSPHAGIA COMPARISON: None available. RADIATION DOSE: Fluor oscopy Time: 2.3 min Dose (Kerma) Area Product: 4.7 Gycm2 Air K kathleen (AK) value has been reviewed. It is below the limits set by the Radiation Protocol Committee (RPC) committee. FINDINGS: See impression IMPRE SSION: Laryngeal penetration and overt aspiration upon administration of th in liquid barium consistencies. Please see speech pathology report for detaile d description and recommendations. Signed by: Dr. Orlando Richards M.D. on 07/30/2018 1:09 PM Dictated By: ORLANDO RICHARDS MD 1301 Transcribed By: LEOPOLDO on 9 1309 COPY TO: PHILLIP NEIL MD CT CHEST [id number] 14:20:00 [place] [address] Patient Name: WILVER ESTRADA MR #: [id number] : 1940 Age/Sex: 78/F Req #: [id number] Adm Physician: Ordered by: PHILLIP NEIL MD Report #: [id number] Location: CT Room/Bed: Procedure: [id number] CT/CT CH EST WO Exam Date: 06/11/18 Exam Time: 1120 REPORT STATUS: Signed EXAM: CT Chest with out contrast Date/time: 06/11/2018 11:00 AM INDICATION: Chest pain, timbo rtness of breath, query lung nodule. COMPARISON: None TECHNIQUE: Ch est was scanned utilizing a multidetector helical scanner from the lung apex t hrough the level of the adrenal glands without administration of IV contrast. Coronal and sagittal reformations were obtained. Routine protocol was performe d. Dose modulation, iterative reconstruction, and/or weight based adjustment o f the mA/kV was utilized to reduce the radiation dose to as low as reasonably achievable. RADIATION DOSE: Total DLP: 477 mGy*cm FINDINGS : LINES/ TUBES: None. LUNGS AND AIRWAYS: The central airways are paten t. There is biapical pleural-parenchymal opacity. There are bilateral pulmonar y nodules. These include a 3 mm solid pulmonary nodule in the right upper lobe on series 3, image 39 and a 5 mm solid pulmonary nodule in the middle lobe on image 69. There are bilateral calcified granulomas. There are patchy dependent atelectatic changes. PLEURA: The pleural spaces are clear. HEART AND MEDIASTINUM: The thyroid gland is normal. No mediastinal, hilar or axillary lymphadenopathy. No cardiomegaly. Trace pericardial effusion. Moderate ather osclerotic calcifications of the thoracic aorta, branch vessels, and coronary vessels. The main pulmonary artery is enlarged measuring up to 3.6 cm, suggest feroz of pulmonary arterial hypertension. UPPER ABDOMEN: Limited non-contras t views of the upper abdomen show no abnormality within the visualized liver s pleen. Partially seen right adrenal nodule (5 HU), consistent with adrenal loretta noma. BONES/SOFT TISSUES: No acute bony amount. Degenerative changes of th e visualized spine. IMPRESSION: No evidence of acute intrathoracic ab normality on noncontrast CT. Biapical pleural-parenchymal opacity with rigoberto ateral calcified nodules, consistent with sequela of prior granulomatous disea se. Right-sided noncalcified nodules measuring up to 5 mm. These may repre sent noncalcified granulomas. In a patient with no other risk factor for malig fly, no further follow-up is suggested. If there is history of smoking or ot her risk factor for malignancy, a optional chest CT at 12 months may be consid ered. Enlarged main pulmonary artery measuring up to 3.6 cm, suggestive of pulmonary arterial hypertension. Signed by: Dr. Vasquez Hammonds MD on 06/11/19 2:33 PM Dictated By: VASQUEZ HAMMONDS MD 1433 Transcribed By: LEOPOLDO on 06/11/18 1433 COPY TO: PHILLIP NEIL MD
[2018-12-05] MEDS ORDERED: SODIUM CHLORIDE 0.9% 1000ML 1,000 ML IV STA (09:50)
--- NOTE | 2018-12-05 11:05 | Diagnostic Imaging Report ---
History:Fall Comparison studies: None Technique: Axial images were obtained from the skull base to the vertex. Coronal and sagittal images reconstructed from the axial data. Dose modulation, iterative reconstruction, and/or weight based adjustment of the mA/kV was utilized to reduce the radiation dose to as low as reasonably achievable. Intravenous contrast: None Findings: Scalp/skull: No abnormalities. Extra-axial spaces: No masses. No fluid collections. Brain sulci: Mildly prominent but appropriate for age Ventricles: Slightly prominent but are appropriate for age. No hydrocephalus. Parenchyma: Subtle, confluent hypodensities in the supratentorial white matter are small vessel ischemic changes. No masses, hemorrhage, acute or chronic cortical vascular insults. Sellar/suprasellar region: No abnormalities. Craniocervical junction: Patent foramen magnum. No Chiari one malformation. Incidental findings: Atherosclerotic calcifications in the carotid siphons . Impression: No acute abnormalities. Chronic findings: 1. Mild generalized volume loss. 2. Mild supratentorial white matter small vessel ischemic changes. Signed by: Dr. Buzz Bran M.D. on 12/05/2018 11:01 AM
--- NOTE | 2018-12-05 11:07 | Diagnostic Imaging Report ---
EXAMINATION: CHEST SINGLE (PORTABLE) INDICATION: Altered mental status. COMPARISON: None FINDINGS: TUBES and LINES: None. LUNGS: Lungs are moderately inflated. There is biapical pleural-parenchymal opacity, likely representing sequela of prior granulomatous disease. There are linear opacities at the bilateral lung bases, likely representing subsegmental atelectasis. No evidence of lobar consolidation or pulmonary edema. PLEURA: No pleural effusion or pneumothorax. HEART AND MEDIASTINUM: The cardiomediastinal silhouette is unremarkable. BONES AND SOFT TISSUES: No acute osseous abnormality. UPPER ABDOMEN: No free air under the diaphragm. IMPRESSION: No acute radiographic abnormality. Signed by: Dr. Nasima Koenig MD on 12/05/2018 11:03 AM
--- NOTE | 2018-12-05 11:10 | Diagnostic Imaging Report ---
Exam: AP radiograph of the pelvis-1 view; left hip radiographs-2 views History: Altered mental status, fall. Comparison: None. Findings: No evidence of acute fracture or malalignment. Bowel gas partially obscures visualization of the pelvis. There is diffuse osteopenia. There are moderate to severe bilateral hip degenerative changes, left greater than right. There are moderate degenerative changes at the pubic symphysis. Status post-ORIF of the left proximal femur with grossly intact hardware. Well-corticated bony fragment at the lesser trochanter likely represents sequela of prior trauma. Impression: No evidence of acute fracture or malalignment. Posttraumatic and postsurgical changes of the left proximal femur. Signed by: Dr. Nasima Koenig MD on 12/05/2018 11:07 AM
--- NOTE | 2018-12-05 11:17 | Diagnostic Imaging Report ---
History: Fall Comparison studies: None Technique: Axial images were obtained through the cervical region.. Coronal and sagittal images reconstructed from the axial data. Dose modulation, iterative reconstruction, and/or weight based adjustment of the mA/kV was utilized to reduce the radiation dose to as low as reasonably achievable. Intravenous contrast: None Findings: Fractures: None. Soft tissues: Incidental atherosclerotic calcifications in the carotid bulbs and carotid siphon Atlantoaxial articulation: Intact. Alignment: Normal lordosis in spite of motion artifacts from C2 through C4.. No scoliosis. Cervicomedullary junction: No abnormalities. The foramen magnum is patent. Vertebrae: No infection or neoplasm. Degenerative changes: Cannot evaluate the foramina or the spinal canal from C2 through C4 due to artifacts. Moderately degenerated discs from C3 to C7. Moderate right foraminal stenosis at C4-5 and C5-6 due to facet and uncovertebral arthrosis Moderate spinal canal stenosis at C4-5, mild at C5-6, moderate at C6-C7 due to disc osteophyte complexes. IMPRESSION: 1. Cannot adequately evaluate the foramina or the spinal canal from C2 through C4 due to motion artifacts. 2. No acute abnormalities in spite of the motion artifacts. 3. Cannot adequately evaluate for ligament, spinal cord and or vascular abnormalities. 4. Degenerative changes as described. Signed by: Dr. Buzz Bran M.D. on 12/05/2018 11:14 AM
[2018-12-05 11:21] LABS: BASOPHILS % 0.3 % (0.0-1.0); EOSINOPHILS # (AUTO) 0.1 (0.0-0.4); EOSINOPHILS % 0.5 % (0.0-6.0); HEMOGLOBIN 14.4 g/dL (12.0-16.0); LYMPHOCYTES # (AUTO) 2.8 (1.0-3.2); LYMPHOCYTES % 21.7 % (18.0-39.1); MEAN CORPUSCULAR HEMOGLOBIN 31.4 pg (28-32); MEAN CORPUSCULAR HGB CONC 31.3 g/dL (31-35); MEAN CORPUSCULAR VOLUME 100.4 fL (81-99); MONOCYTES # (AUTO) 1.1 (0.2-0.8); MONOCYTES % 8.2 % (4.4-11.3); NEUTROPHILS % 68.9 % (38.7-80.0); PLATELET COUNT 216 x10e3/uL (140-360); RED BLOOD COUNT 4.58 x10e6/uL (3.6-5.1); RED CELL DISTRIBUTION WIDTH 14.5 % (11.7-14.4)
[2018-12-05 11:22] LABS: BILIRUBIN,URINE NEGATIVE (NEGATIVE); KETONES,URINE NEGATIVE (NEGATIVE); LEUKOCYTE ESTERASE ,URINE TRACE (NEGATIVE); NITRITE,URINE POSITIVE (NEGATIVE); PROTEIN,URINE DIPSTICK NEGATIVE (NEGATIVE); URINE UROBILINOGEN 0.2 mg/dL (0.2 - 1)
[2018-12-05 11:32] LABS: INR 0.9; PROTHROMBIN TIME 12.6 seconds (11.9-14.5)
[2018-12-05 11:37] LABS: CLARITY,URINE CLEAR (CLEAR); COLOR,URINE YELLOW (YELLOW)
[2018-12-05 11:40] LABS: AMPHETAMINES SCREEN,URINE NEGATIVE (NEGATIVE); BENZODIAZEPINES SCREEN,URINE NEGATIVE (NEGATIVE); PHENCYCLIDINE SCREEN,URINE NEGATIVE (NEGATIVE)
[2018-12-05 11:41] LABS: ALANINE AMINOTRANSFERASE 22 IU/L (0-55); ALBUMIN 4.1 g/dL (3.5-5.0); ALBUMIN/GLOBULIN RATIO 1.3 (0.8-2.0); ALKALINE PHOSPHATASE 68 IU/L (40-150); ANION GAP 16.2 mmol/L (8-16); BLOOD UREA NITROGEN 19 mg/dL (7-26); BUN/CREATININE RATIO 22 (6-25); CALCIUM 10.6 mg/dL (8.4-10.2); CARBON DIOXIDE 31 mmol/L (22-29); CHLORIDE 100 mmol/L (98-107); CREATINE KINASE 223 IU/L (29-168); CREATININE, SERUM 0.85 mg/dL (0.57-1.11); EST GLOMERULAR FILTRATION RATE > 60 ML/MIN (60-); GLUCOSE 111 mg/dL (74-118); MAGNESIUM 2.3 MG/DL (1.3-2.1); POTASSIUM 4.2 mmol/L (3.5-5.1); SODIUM 143 mmol/L (136-145)
[2018-12-05 11:45] LABS: ACETAMINOPHEN < 3 ug/mL (10-30); SALICYLATE < 5.0 mg/dL (0-30)
[2018-12-05 11:50] LABS: RBC,URINE 0-5 /HPF (0-5); WBC,URINE (MAN) 0-5 /HPF (0-5)
[2018-12-05 11:51] LABS: BACTERIA,URINE MANY /HPF; EPITHELIAL CELLS,URINE RARE /LPF
[2018-12-05 12:18] LABS: B-TYPE NATRIURETIC PEPTIDE2 13.9 pg/mL (0-100)
[2018-12-05] MEDS ORDERED: MEROPENEM 1GRAM 1 GM in SODIUM CHLORIDE 0.9% 100 ML 100 ML IV SCH (12:30)
[2018-12-05] MEDS ORDERED: SODIUM CHLORIDE 0.9% 1000ML 1,000 ML IV ONE (12:30)
[2018-12-05] MEDS ORDERED: ONDANSETRON HCL INJ 2MG/ML 2ML 2 MG/ML VIAL IV PRN (12:30)
[2018-12-05] MEDS ORDERED: MEROPENEM 1GM 100 ML IV ONE (12:36)
[2018-12-05] MEDS: MEROPENEM 1GM 100 ML IV SCH ×2 (12:45→21:27)
[2018-12-05 13:22] LABS: THYROID STIMULATING HORMONE 0.543 uIU/mL (0.350-4.940)
[2018-12-05 14:01] VITALS: BP 153/65
[2018-12-05 14:02] LABS: ABG HCO3 30 mmol/L (23-28); ABG PCO2 50 mmHg (41-51); ABG PH 7.39 (7.31-7.41); ABG PO2 79 mmHg (80-105)
[2018-12-05 14:06] VITALS: BP 153/65
[2018-12-05 14:15] VITALS: BP 153/65
--- NOTE | 2018-12-05 14:25 | NUR ---
patient received awake and alert but confused at times with some slurred speech. see admit assess. sinus rhythm with 1st degree block with BBB. spoke with sister and states this is third round of UTI in last [address] Smith. vitals stable with no distress.
[2018-12-05] MEDS: SALMETEROL/FLUTICASONE 500/50 INH SCH ×2 (15:00→19:30)
[2018-12-05] MEDS: DOCUSATE SODIUM 100 MG CAP PO SCH (16:33)
[2018-12-05 16:41] VITALS: BP 119/59
--- NOTE | 2018-12-05 17:39 | Diagnostic Imaging Report ---
EXAM: Lumbar spine radiographs - 5 views. INDICATION: Pain. COMPARISON: None FINDINGS: BONES: There is grade 2 anterolisthesis of L5 on S1. No acute displaced fractures. Vertebral body heights are preserved. DISCS: Mild degenerative disc changes in the lower thoracic and lumbar spine. JOINTS: Severe facet degenerative changes, most pronounced at L4-5 and L5-S1. SOFT TISSUES: Unremarkable IMPRESSION: Severe facet degenerative changes in the lower lumbar spine. Grade 2 anterolisthesis of L5 on S1. Mild degenerative disc changes. Signed by: Dr. Nasima Koenig MD on 12/05/2018 5:35 PM
--- NOTE | 2018-12-05 18:00 | NUR ---
PATIENT RECEIVED FROM OBS PER STRETCHER. ALERT AND VERBALLY RESPONSIVE. REQUESTED AND RECEIVED A CUP OF COFFEE. TELEMETRY BOX AND O2 IN PLACE. ALL PERSONAL ITEMS CLOSE TO PATIENT. BED IN LOWER POSITION AND LOCKED. CALL LIGHT AT REACH.
--- NOTE | 2018-12-05 19:25 | NUR ---
Patient received asleep in bed. Arousable to tactile stimuli. No signs of pain, discomfort or respiratory distress. IVF infusing at 100 cc / hr. Fall precautions implemented. Call light within reach.
[2018-12-05] MEDS: IPRATROPIUM BROMIDE 0.02% 2.5 ML NEB NEB SCH (19:30)
--- NOTE | 2018-12-05 20:05 | NUR ---
Patient's IV on left forearm infiltrated. Old IV removed with tip intact. Patient tolerated well.
[2018-12-05 20:24] LABS: CREATINE KINASE 210 IU/L (29-168)
[2018-12-05 20:56] VITALS: BP 131/63
[2018-12-05 21:00] VITALS: BP 131/63
[2018-12-06] VITALS (9 sets, daily range): BP systolic 87–141; BP diastolic 47–65
[2018-12-06] MEDS: MEROPENEM 1GM 100 ML IV SCH ×3 (05:42→21:29)
[2018-12-06] MEDS: LEVOTHYROXINE SODIUM 50 MCG TAB PO SCH (05:42)
[2018-12-06 05:52] LABS: BASOPHILS % 0.3 % (0.0-1.0); EOSINOPHILS # (AUTO) 0.2 (0.0-0.4); HEMATOCRIT 43.7 % (34.2-44.1); HEMOGLOBIN 13.9 g/dL (12.0-16.0); LYMPHOCYTES # (AUTO) 2.6 (1.0-3.2); MEAN CORPUSCULAR HEMOGLOBIN 31.6 pg (28-32); MEAN CORPUSCULAR HGB CONC 31.8 g/dL (31-35); MEAN CORPUSCULAR VOLUME 99.3 fL (81-99); MONOCYTES % 11.1 % (4.4-11.3); NEUTROPHILS # (AUTO) 4.9 (2.1-6.9); NEUTROPHILS % 56.3 % (38.7-80.0); PLATELET COUNT 210 x10e3/uL (140-360); RED CELL DISTRIBUTION WIDTH 14.7 % (11.7-14.4)
[2018-12-06 06:30] LABS: CREATINE KINASE MB 1.4 ng/mL (0-5.0)
[2018-12-06 06:49] LABS: ALANINE AMINOTRANSFERASE 19 IU/L (0-55); ALBUMIN 3.6 g/dL (3.5-5.0); ALBUMIN/GLOBULIN RATIO 1.2 (0.8-2.0); ALKALINE PHOSPHATASE 62 IU/L (40-150); ANION GAP 13.9 mmol/L (8-16); BLOOD UREA NITROGEN 14 mg/dL (7-26); BUN/CREATININE RATIO 18 (6-25); CALCIUM 9.4 mg/dL (8.4-10.2); CARBON DIOXIDE 30 mmol/L (22-29); CHLORIDE 105 mmol/L (98-107); CREATININE, SERUM 0.77 mg/dL (0.57-1.11); EST GLOMERULAR FILTRATION RATE > 60 ML/MIN (60-); GLUCOSE 102 mg/dL (74-118); POTASSIUM 3.9 mmol/L (3.5-5.1); SODIUM 145 mmol/L (136-145)
--- NOTE | 2018-12-06 07:07 | NUR ---
Shift report given to oncoming nurse.
--- NOTE | 2018-12-06 07:09 | NUR ---
PATIENT IN BED RESTING WITH EYES CLOSED, NO RESPIRATORY DISTRESS OBSERVED. TELEMETRY BOX IN PLACE. BED IN LOWER POSITION AND LOCKED. CALL LIGHT AT EASY REACH.
[2018-12-06] MEDS: SALMETEROL/FLUTICASONE 500/50 INH SCH ×2 (07:34→19:00)
[2018-12-06] MEDS: TIOTROPIUM 18 MCG INH POWDER INH SCH (07:34)
[2018-12-06] MEDS: IPRATROPIUM BROMIDE 0.02% 2.5 ML NEB NEB SCH ×2 (07:34→20:35)
[2018-12-06] MEDS ORDERED: LISINOPRIL 10 MG TAB PO SCH (09:00)
[2018-12-06] MEDS: LISINOPRIL 20 MG TAB PO SCH (09:10)
[2018-12-06] MEDS: DOCUSATE SODIUM 100 MG CAP PO SCH ×2 (09:10→17:45)
[2018-12-06] MEDS: CLOPIDOGREL BISULFATE 75 MG TAB PO SCH (09:10)
[2018-12-06] MEDS: DULOXETINE HCL 30 MG DELAYED RELEASE PO SCH (09:10)
[2018-12-06] MEDS: FUROSEMIDE 20 MG TAB PO SCH (09:10)
[2018-12-06] MEDS: METOPROLOL SUCCINATE 50 MG TAB XL PO SCH (09:11)
[2018-12-06] MEDS: SOLIFENACIN SUCCINATE 5 MG TAB PO SCH (09:12)
--- NOTE | 2018-12-06 11:09 | NUR ---
PATIENT ASSISTED WITH DIAPER CHANGE, REPOSITIONED IN BED. CALL LIGHT AT REACH.
--- NOTE | 2018-12-06 15:12 | NUR ---
PATIENT NOTED WITH B/P OF 87/47 FROM DYNAMAP. UPON ASSESSMENT PATIENT STATED I AM FINE. B/P RECHECKED MANUALLY WITH THE READING OF 104/58. PATIENT IN BED RESTING WITH NO RESPIRATORY DISTRESS. CALL LIGHT AT REACH.
--- NOTE | 2018-12-06 16:19 | NUR ---
PATIENT OFF UNIT TO RADIOLOGY.
[2018-12-06] MEDS ORDERED: GADOBENATE DIMEGLUMINE 1 ML IV ONE (16:26)
--- NOTE | 2018-12-06 17:50 | NUR ---
PATIENT BACK TO UNIT FROM RADIOLOGY. DIAPER CHECKED, HEEL PROTECTORS REAPPLIED, REPOSITIONED IN BED. SITTING UP IN BED EATING DINNER. CALL LIGHT AT REACH.
--- NOTE | 2018-12-06 18:03 | Diagnostic Imaging Report ---
History: Fall, altered mental status, patient says has MS Comparison studies: None Technique: Pre-contrast: Sagittal T2; axial T1-IR, SWI, DWI, T2 FLAIR Post-contrast: Axial, coronal and sagittal T1. Intravenous contrast: 20 cc of MultiHance. Findings: Scalp: No abnormal signal. No masses. Bone marrow: Normal in signal intensity. Extra-axial: No masses, fluid collections or hemorrhage. Brain sulci: Mildly prominent. Ventricles: Mild compensatory dilatation. No hydrocephalus. Parenchyma: Nonenhancing, confluent T2 FLAIR hyperintense foci in the along the margins of the lateral ventricles and a few punctate foci in the adjacent deep white matter are nonspecific. No classic T1 hypointense or enhancing foci to suggest a demyelinating disorder. No masses, hemorrhage, acute or chronic vascular insults. No enhancing abnormalities. Suprasellar region: No abnormalities. Craniocervical junction: No abnormalities. Patent foramen magnum. No Chiari one malformation.. Vessels: Normal flow-voids in the arteries and sinuses. IMPRESSION: No acute abnormalities. Chronic findings: 1. Mild age-related generalized volume loss. 2. Supratentorial, periventricular and deep T2 FLAIR hyperintense foci are nonspecific. The pattern is possible but unusual for multiple sclerosis. Consider only if the diagnosis has been confirmed in the past. Signed by: Dr. Buzz Bran M.D. on 12/06/2018 6:00 PM
--- NOTE | 2018-12-06 18:09 | Diagnostic Imaging Report ---
History: Fall, altered mental status, patient says ms Comparison studies: None Technique: Sagittal T1, T2 and inversion recovery, axial T1 and T2 Postcontrast axial and sagittal T1. Intravenous contrast: 20 cc of MultiHance. Findings: Study is suboptimal to adequately evaluate the spinal cord for small demyelinating plaques. In spite of the motion artifact Spinal cord size: Normal in size and configuration. T2 lesion load: No demyelinating plaques in spite of artifacts. Hypointense foci: None. Enhancing lesions: None Degenerative changes: Mildly degenerated discs from C3 to C6. Mild spinal canal stenosis at C3-4, moderate at C4-5, mild at C5-6 due to disc osteophyte complexes. Superimposed foraminal stenosis is moderate right at C3-4, bilaterally at C4-5, right at C5-6 and mild bilaterally at C6-C7 due to facet and uncovertebral arthrosis. IMPRESSION: 1. Study is suboptimal to evaluate the spinal cord for small demyelinating plaques due to motion artifacts 2. No gross abnormalities in the spinal cord, however, to suggest a demyelinating disorder in spite of the artifacts. No enhancing lesions, T1 hypointense foci or atrophic changes. 3. Degenerative spinal canal and foraminal stenosis as described. Signed by: Dr. Buzz Bran M.D. on 12/06/2018 6:06 PM
--- NOTE | 2018-12-06 18:46 | NUR ---
DR FIELDS NOTIFIED OF MRI RESULTS, NO NEW ORDER RECEIVED.
[2018-12-07] VITALS (8 sets, daily range): BP systolic 100–154; BP diastolic 53–85
[2018-12-07 06:07] LABS: BASOPHILS % 0.4 % (0.0-1.0); EOSINOPHILS # (AUTO) 0.1 (0.0-0.4); EOSINOPHILS % 1.5 % (0.0-6.0); HEMATOCRIT 40.3 % (34.2-44.1); HEMOGLOBIN 12.8 g/dL (12.0-16.0); LYMPHOCYTES # (AUTO) 3.2 (1.0-3.2); LYMPHOCYTES % 34.3 % (18.0-39.1); MEAN CORPUSCULAR HEMOGLOBIN 31.4 pg (28-32); MEAN CORPUSCULAR HGB CONC 31.8 g/dL (31-35); MONOCYTES # (AUTO) 0.9 (0.2-0.8); MONOCYTES % 9.8 % (4.4-11.3); NEUTROPHILS % 53.7 % (38.7-80.0); PLATELET COUNT 206 x10e3/uL (140-360); RED BLOOD COUNT 4.07 x10e6/uL (3.6-5.1); RED CELL DISTRIBUTION WIDTH 14.7 % (11.7-14.4)
[2018-12-07] MEDS: LEVOTHYROXINE SODIUM 50 MCG TAB PO SCH (06:16)
[2018-12-07] MEDS: MEROPENEM 1GM 100 ML IV SCH ×3 (06:16→22:00)
[2018-12-07 06:21] LABS: ANION GAP 12.6 mmol/L (8-16); BLOOD UREA NITROGEN 15 mg/dL (7-26); BUN/CREATININE RATIO 21 (6-25); CARBON DIOXIDE 31 mmol/L (22-29); CHLORIDE 101 mmol/L (98-107); EST GLOMERULAR FILTRATION RATE > 60 ML/MIN (60-); GLUCOSE 100 mg/dL (74-118); POTASSIUM 3.6 mmol/L (3.5-5.1); SODIUM 141 mmol/L (136-145)
[2018-12-07] MEDS: IPRATROPIUM BROMIDE 0.02% 2.5 ML NEB NEB SCH ×2 (07:00→19:15)
[2018-12-07] MEDS: SALMETEROL/FLUTICASONE 500/50 INH SCH ×2 (07:05→19:00)
[2018-12-07] MEDS: TIOTROPIUM 18 MCG INH POWDER INH SCH (07:06)
--- NOTE | 2018-12-07 07:30 | NUR ---
PT UP IN BED NO DISTRESS NOTED,DENIES PAIN
[2018-12-07] MEDS: CLOPIDOGREL BISULFATE 75 MG TAB PO SCH (08:15)
[2018-12-07] MEDS: DOCUSATE SODIUM 100 MG CAP PO SCH ×2 (08:15→16:53)
[2018-12-07] MEDS: DULOXETINE HCL 30 MG DELAYED RELEASE PO SCH (08:15)
[2018-12-07] MEDS: FUROSEMIDE 20 MG TAB PO SCH (08:15)
[2018-12-07] MEDS: METOPROLOL SUCCINATE 50 MG TAB XL PO SCH (08:16)
[2018-12-07] MEDS: LISINOPRIL 20 MG TAB PO SCH (08:16)
--- NOTE | 2018-12-07 08:25 | NUR ---
Met with pt today, as she is a 2 day obs. She states she lives at [facility] facility. States she recently was in "the other Counts include 234 beds at the [facility]" and then went to [facility] for 21 days. States she was not ready to leave [facility], but had to "due to insurance said so". She states she has home health, but does not know the name of the company but her sister will know. She wants to go back to SNF. CM notified CM Director Radha Roger, Medical Records Specialist Radha Coates, and Kayla Cabrales RN, CM. Discussed also with pt nurse, Citlali BLUE. There is no order at this time for HH or SNF. Her CM DC naval surface fire support planner to follow
--- NOTE | 2018-12-07 12:30 | NUR ---
PT MBS FINISHED STATED DOES NOT NEED THICKENED LIQUIDS
--- NOTE | 2018-12-07 13:42 | NUR ---
SPOKE WITH USAMA AT [facility], SHE GAVE WRONG FAX NUMBER CORRECTED AND SHE CONFIRMED RECEIPT OF CLINICALS
--- NOTE | 2018-12-07 14:15 | NUR ---
COMPLETED RTF AND PASRR AND FILED IN CHART AND PACKET FOR COMPLETION OF TRANSFER.
--- NOTE | 2018-12-07 16:30 | NUR ---
DR FIELDS HERE NO NE ORDERS AND PT MAY BE DISCHARGED FROM HER STANDPOINT
[2018-12-07] MEDS: SOLIFENACIN SUCCINATE 5 MG TAB PO SCH (16:50)
--- NOTE | 2018-12-07 19:57 | NUR ---
Received change of shift report from AM nurse. Rounds completed.
--- NOTE | 2018-12-07 22:25 | Consultation ---
DATE OF CONSULTATION: 12/07/2018 Neurology Consult Note HISTORY OF PRESENT ILLNESS: Ms. Grajeda is a 78-year-old right-hand dominant woman with an extensive past medical history, admitted to [facility] on December 05, 2018, with altered mental status secondary to a urinary tract infection. During her hospitalization: The patient has reported a previous diagnosis of multiple sclerosis. A Neurology consultation is requested to determine whether or not any of the patient's symptoms may be due to multiple sclerosis exacerbation. On the day of admission, Ms. Grajeda was found on the floor in her room at the assisted living facility. Initially, the patient was unresponsive. When she did become more responsive, the patient was noted to be moderately to severely confused. Emergency Medical Services were notified, and Ms. Grajeda was transported to the emergency center at [facility] via ambulance for further evaluation of her symptoms. Upon arrival in the emergency center, the patient was afebrile with a blood pressure of 153/65 mmHg and a pulse of 89 beats per minute. Her neurological examination was significant for dysarthria and hyperreflexia at the bilateral biceps and patellas. A CT of the brain without contrast was performed while the patient was in the emergency center. There was no evidence of recent large territorial ischemia or hemorrhage on this study. Routine laboratory studies, including a urinalysis, revealed evidence of urinary tract infection. Ms. Grajeda was admitted to [facility] under observation status for further evaluation and treatment of her urinary tract infection. Ms. Grajeda reports being diagnosed with multiple sclerosis in either 2004 or 2005. According to the patient, she initially noted numbness affecting both arms and both legs. Over a period of 4-6 weeks, Ms. Grajeda reports losing all sensation and strength in both arms and both legs. It was at this time the patient was evaluated by a neurologist, Dr. Acevedo, in [place], [place]. Ms. Grajeda reports undergoing numerous diagnostic studies, including a MRI of the brain, which was reportedly normal. The patient underwent an MRI of the entire spine as well, but cannot recall the results of the study. The patient reports undergoing a lumbar puncture as well, which was reportedly normal. During this time of initial evaluation, Ms. Grajeda reports undergoing a whole-body CT and multiple x-rays. The results of these studies are not known. According to the patient, she was diagnosed with multiple sclerosis and mild muscular dystrophy. From either 2004 or 2005 until 2009 or 2010, Ms. Grajeda was treated with numerous medications, including infusions of an unknown drug 3 times per week. In either 2009 or 2010, Ms. Grajeda experienced a fall resulting in a fracture of her left hip. Following surgical repair and a prolonged hospitalization for the left hip fracture, the patient was transferred to an assisted living facility where she has remained. At approximately the same time, Ms. Grajeda's neurologist relocated from [place], [place], to [place], [place]. Since either 2009 or 2010, Ms. Grajeda has not seen a neurologist nor has she received treatment for multiple sclerosis. Ms. Grajeda reports none of her symptoms improved while she was being treated for multiple sclerosis. As a result, the patient has been largely confined to a motorized wheelchair for the past 14 plus years. Ms. Grajeda reports being able to walk a few feet, but then her knees will "buckle" and she will fall to the floor. Since 2009 or 2010, the patient has not experienced any new or worsening neurological symptoms suspicious for multiple sclerosis exacerbation. REVIEW OF SYSTEMS: Joint pain (chronic), confusion, low back pain (chronic), status post fall. Otherwise, a 12-point review of systems is negative. PAST MEDICAL HISTORY: Hypertension, hyperlipidemia, chronic obstructive pulmonary disease, thyroid disease, depression, prior stroke without residual deficits, right carotid stenosis, chronic back pain, osteoporosis, peripheral neuropathy, scoliosis. PAST SURGICAL HISTORY: Lumbar spine surgery, appendectomy, bladder suspension, left hip replacement, tonsillectomy, cholecystectomy, right eye surgery, bilateral cataract removal, right carotid endarterectomy, multiple D and Cs, hysterectomy. PAST HOSPITALIZATIONS: Surgeries and procedures as listed, numerous other hospitalizations. FAMILY MEDICAL HISTORY: The patient's paternal and maternal grandparents are . Their medical histories are unknown. The patient's father is from coronary artery disease with a myocardial infarction. Ms. Grajeda's mother is from metastatic breast cancer. Ms. Grajeda has 2 siblings, a brother and a sister, both of whom are alive. The patient's brother is paraplegic following an electrocution injury at the age of 23 years. Her sister has hypertension, arthritis, colon polyps requiring numerous colonoscopies, and a prior unknown cancer, currently in remission. Ms. Grajeda has no biological children. SOCIAL HISTORY: The patient is a . She lives in an assisted living facility. Ms. Grajeda is retired. Overall, the patient smoked cigarettes for approximately 29 years. She quit smoking for the last time in 2010. The patient does not report current or prior alcohol or recreational drug use. HOME MEDICATIONS: Calcium with vitamin D 1 tablet by mouth daily, Plavix 75 mg by mouth daily, Colace 100 mg by mouth twice daily, Cymbalta 30 mg by mouth daily, Lasix 20 mg by mouth daily, Smiley 10-325 one tab by mouth 3 times daily as needed for pain, ipratropium bromide 2.5 mL nebulized twice daily, levothyroxine 50 mcg by mouth daily, lisinopril 20 mg by mouth daily, metoprolol 50 mg by mouth daily, naproxen 500 mg by mouth twice daily, potassium chloride 20 mEq by mouth daily, Lyrica 150 mg by mouth daily, Advair 1 inhalation every 12 hours, Zocor 40 mg by mouth at bedtime daily, VESIcare 10 mg by mouth daily, Spiriva 18 mcg inhaled daily, tramadol 50 mg by mouth as needed for pain. HOSPITAL MEDICATIONS: Plavix, Colace, Cymbalta, Advair, Lasix, Atrovent, Synthroid, lisinopril, meropenem, Toprol, Zofran, VESIcare, Spiriva. ALLERGIES: ASPIRIN, CODEINE, GLYCERIN, MORPHINE, PENICILLIN, PROPOXYPHENE, SODIUM LACTATE, AND SODIUM PHOSPHATE. NO KNOWN FOOD ALLERGIES. NO KNOWN ALLERGIES TO LATEX. MS. GRAJEDA DOES HAVE A DOCUMENTED IODINE ALLERGY. PHYSICAL EXAMINATION: VITAL SIGNS: Height 70 inches, weight 195 pounds, BMI 28.0 kg/m2. Blood pressure 108/58 mmHg, pulse 80 beats per minute, respiratory rate 20 breaths per minute, and oxygen saturation 92% on 2 L by nasal cannula. GENERAL: The patient is awake and alert, does not appear distressed. Overweight. HEENT: Normocephalic, atraumatic. Pupils are surgical. Moist mucous membranes. NECK: Supple. No appreciable thyromegaly. No appreciable carotid bruits. CARDIOVASCULAR: S1, S2, regular rate and rhythm. No murmurs, rubs, or gallops. RESPIRATORY: Clear to auscultation bilaterally. No wheezes, rhonchi, or rales. EXTREMITIES: The skin is warm and dry. No clubbing, cyanosis, or edema. The posterior tibial and dorsalis pedis pulses are 1+ and symmetric. SKIN: No rashes or lesions. NEUROLOGIC: Memory/Attention: The patient is awake and alert, oriented to person, place, time, and situation. Cranial Nerves: Cranial nerve I - not tested. Cranial nerve II, III, IV, and - pupils are surgical. Extraocular movements intact. No nystagmus. Cranial nerve V - sensation to light touch and pinprick is intact in the bilateral V1 through V3 distributions. Strength of the temporalis and masseter muscles are within normal limits. Cranial nerve VII - the face is symmetric as are all facial movements. Strength is within normal limits. Cranial nerve VIII - hearing is diminished to finger rub bilaterally. Cranial nerve IX, X - the soft palate elevates equally and symmetrically. Cranial nerve XI - normal strength of the bilateral sternocleidomastoid and trapezius muscles. Cranial nerve XII - the tongue protrudes midline and moves symmetrically from [id number]-fa-zwzf. Strength: Bulk is normal. Strength is grossly 4/5 in all muscles examined in both arms and both legs. There is effort, dependent weakness in all muscles examined. Tone is normal. DTRs: Deep tendon reflexes are 1+ and symmetric at the triceps, biceps, brachioradialis, and patellas. Deep tendon reflexes are absent and symmetric at the Achilles. Plantar responses are flexor bilaterally. Sensation: Sensation is intact to light touch in both arms and both legs. Ms. Grajeda reports sensation to pinprick feels "soft" over both arms and both legs. Cerebellar: Afwmtl-qaqz-ooouhf movements are intact without dysmetria or other impairment. Heel-gama movements are impaired secondary to pain. Gait: Deferred. Speech: Spontaneous speech is normal without appreciable dysarthria or aphasia. Repetition is intact. Involuntary movements: None. Pronator Drift: None. LABORATORY DATA: The most recent basic metabolic panel is significant only for an elevated carbon dioxide level of 31. Liver function panel collected on December 06, 2018, is unremarkable. Lactic acid 14.7. Ammonia 58. B-natriuretic peptide 13.9. Cardiac enzymes are negative x3. TSH 0.543. CBC with differential and platelets reveals a white blood cell count of 9.26 with a normal differential. The hemoglobin and hematocrit of 12.8 and 40.3, respectively. The platelet count is 206. A coagulation profile is within normal limits. A blood gas collected on December 05, 2018, revealed a pH of 7.39, pCO2 of 50, PO2 of 79, bicarbonate of 30, O2 saturation of 95.0, base excess of 5.0, and FiO2 of 36. A urinalysis was significant for positive nitrites, trace leukocyte esterase, and many urine bacteria with rare urine epithelial cells. A urine drug screen was positive for opiates. Salicylates less than 5.0. Acetaminophen left less than 3. Ethyl alcohol less than 10.0. A urine culture collected on December 05, 2018, grew Escherichia coli. Blood cultures collected on December 05, 2018, revealed no growth after 48 hours. DIAGNOSTIC STUDIES: EKG on 12/05/2018: Sinus rhythm at 75 beats per minute with first-degree AV block. Left axis deviation. Incomplete right bundle-branch block. Pelvis x-ray on 12/05/2018: No evidence of acute fracture or malalignment. Posttraumatic and postsurgical changes of the left proximal femur. Chest x-ray on 12/05/2018: No acute radiographic abnormality. CT of the cervical spine on 12/05/2018: Cannot adequately evaluate the foramina or the spinal canal from C2 through C4 due to motion artifacts. No acute abnormalities in spite of the motion artifacts. Cannot adequately evaluate for ligament, spinal cord, and/or vascular abnormalities. Degenerative changes as prescribed. CT of the brain without contrast on 12/05/2018: On my review, there is no evidence of recent or remote large territorial ischemia, hemorrhage, mass, or mass effect. There is mild diffuse cerebral atrophy with compensatory dilatation of the ventricles, appropriate for the patient's age. Their findings compatible with [id number] chronic small-vessel ischemic disease. Lumbar spine x-ray on 12/05/2018: Severe facet degenerative changes in the lower lumbar spine. Grade 2 anterolisthesis of L5 on S1. Mild degenerative disk changes. MRI of the brain without contrast of 12/06/2018: On my review, there is no evidence of recent or remote large territorial ischemia, hemorrhage, mass, or mass effect. There are no enhancing lesions. There is mild diffuse cerebral atrophy with compensatory dilatation of the ventricles, consistent with the patient's age. There are confluent T2/FLAIR periventricular hyperintense foci compatible with moderate chronic small vessel ischemic disease. There are no lesions suspicious for demyelinating plaques. MRI of the cervical spine on 12/06/2018: Review of these images is significantly limited by motion. However, on my review, there are no enhancing lesions. There are no lesions consistent with demyelinating plaque. There is multilevel degenerative disk disease without significant spinal canal or neuroforaminal narrowing. ASSESSMENT AND PLAN: Ms. Grajeda is a 78-year-old right-hand dominant woman with an extensive past medical history as detailed, admitted to [facility] on December 05, 2018, after being found on the floor of her assisted living facility with altered mental status. The patient has undergone a thorough neurological examination with findings detailed above. Of note, there were no upper motor neuron findings on the patient's neurological examination. The patient's laboratory data and other diagnostic studies have been reviewed and are documented above. The Neurology Services is consulted to determine whether any of the patient's symptoms are due to an acute exacerbation of multiple sclerosis. Candidly, the diagnosis of multiple sclerosis is in question. According to the history provided by the patient, she was diagnosed with multiple sclerosis in her early to mid 60s. This is approximately 20-40 years later than the average person with multiple sclerosis would present. Furthermore, the patient reports her symptoms developed over a period of several weeks. This too is atypical of multiple sclerosis. In general, symptoms of a multiple sclerosis exacerbation will develop over a period of a few days, then gradually resolve over a period of weeks. The patient's description of her treatments for multiple sclerosis are not compatible with any known treatment for multiple sclerosis between and . Furthermore, there are no findings on the patient's neurological examination compatible with an upper motor neuron lesion, or lesions. Lastly, in my opinion, none of the findings on the patient's neuro imaging studies are compatible with multiple sclerosis. Irregardless of whether or not the patient does have multiple sclerosis, it is my opinion her symptoms are due to underlying infection (urinary tract infection) with or without medication effect (opioid medication). Further treatment of the patient's urinary tract infection is recommended. Treatment with sedative/hypnotic and pain medication should be limited as these will alter the patient's sensorium. There are no other recommendations from the Neurology Service at this time. Please call again with any questions or concerns. TIME SPENT: 70 minutes. Juliana Lucio MD CP/BRUCE /[id number]
[2018-12-08] VITALS (8 sets, daily range): BP systolic 107–132; BP diastolic 53–73
--- NOTE | 2018-12-08 | NUR ---
Patient AAOx3. Order to d/c Tele done. Patient denies pain at this time. IV to left hand dry, intact and patent.Continue monitor for changes in patient condition.
--- NOTE | 2018-12-08 03:43 | NUR ---
Patient resting quitly with no c/o at this time. Continue monitor.
[2018-12-08] MEDS: LEVOTHYROXINE SODIUM 50 MCG TAB PO SCH (05:33)
[2018-12-08] MEDS: TIOTROPIUM 18 MCG INH POWDER INH SCH ×2 (05:34→07:45)
[2018-12-08] MEDS: MEROPENEM 1GM 100 ML IV SCH ×3 (05:34→21:05)
--- NOTE | 2018-12-08 06:04 | NUR ---
Patient resting quitly at this time. No c/o at this time.
[2018-12-08] MEDS: IPRATROPIUM BROMIDE 0.02% 2.5 ML NEB NEB SCH ×2 (06:54→19:30)
[2018-12-08] MEDS: SALMETEROL/FLUTICASONE 500/50 INH SCH ×2 (07:00→19:00)
--- NOTE | 2018-12-08 07:15 | NUR ---
pt in bed sleeping ,no s/s discomfort.
[2018-12-08] MEDS: DOCUSATE SODIUM 100 MG CAP PO SCH ×2 (09:00→17:00)
--- NOTE | 2018-12-08 09:18 | NUR ---
CALL TO [facility] @ [address] [facility] [facility] [place] [address]; . CM LEFT W CONTACT INFO FOR UPDATE.
[2018-12-08] MEDS: DULOXETINE HCL 30 MG DELAYED RELEASE PO SCH (09:43)
[2018-12-08] MEDS: FUROSEMIDE 20 MG TAB PO SCH (09:43)
[2018-12-08] MEDS: LISINOPRIL 20 MG TAB PO SCH (09:44)
[2018-12-08] MEDS: SOLIFENACIN SUCCINATE 5 MG TAB PO SCH (09:44)
[2018-12-08] MEDS: METOPROLOL SUCCINATE 50 MG TAB XL PO SCH (09:44)
[2018-12-08] MEDS: CLOPIDOGREL BISULFATE 75 MG TAB PO SCH (09:44)
--- NOTE | 2018-12-08 14:34 | NUR ---
CALLED AND LEFT MESSAGE WITH USAMA AT [facility] TO SEE ABOUT UPDATE ON PT REFERRAL. WAITING POUNCER BACK
[2018-12-08] MEDS ORDERED: ONDANSETRON HCL 4 MG ORAL DISINTEGRATING TAB PO PRN (15:45)
--- NOTE | 2018-12-08 15:59 | NUR ---
WITH ASSISTANCE FROM DIRECTOR FRITZ FROM [facility], CALLED BUILDING [phone] SPOKE WITH KULWINDER MATIAS, WHOM STATES USAMA IS THE WOOL BUYER AND CALLED GERTRUDENE THE ADMISSION COORDINATOR [phone] TO FIND OUT CLINICALS WERE NOT SUBMITTED, GAVE LADLE POURER NUMBER TO RESEARCH FOR COMPLETION OF TRANSFER OF PATIENT.
--- NOTE | 2018-12-08 16:02 | NUR ---
FACILITY WILL NEED TO PROVIDE DIRECTOR WITH THE A NUMBER FOR THE REFERRAL AND CRISTOFER FROM [facility] CAN PROCESS AND GIVE APPROVAL.
--- NOTE | 2018-12-08 17:24 | NUR ---
RICKY HAS SPOKEN WITH CRISTOFER GARZA/[facility] ([phone]) SHE STATES NO PRIOR AUTH IN THE SYSTEM FOR SNF. CALL PLACED TO [facility] AND RICKY SPOKE WITH TED/ADMISSION COORDINATOR (C:[phone]; F: [phone]) WHO STATES THEY ARE [id number]. CM TO BEDSIDE TO SPEAK WITH PATIENT REGARDING DISCHARGE STATUS. SHE STATES SHE WOULD LIKE TO GO TO [facility]. RICKY SPOKE WITH NICK MELTON - SHE WILL FOLLOW-UP WITH [facility] ON 12/09/18.
--- NOTE | 2018-12-08 17:39 | NUR ---
PT UP INBED SLEEPING NO DISTRESS NTOED,AWAITING INSURANCE APPROVAL FOR [facility]
--- NOTE | 2018-12-08 19:00 | NUR ---
Received patient awake on bed, no distress noted, call light within easy reach, bed in low position and locked, bed alarm activated, will continue to monitor
[2018-12-09] VITALS: BP 152/72
[2018-12-09 04:00] VITALS: BP 114/67
[2018-12-09] MEDS: LEVOTHYROXINE SODIUM 50 MCG TAB PO SCH (06:21)
[2018-12-09] MEDS: MEROPENEM 1GM 100 ML IV SCH ×2 (06:21→15:06)
[2018-12-09] MEDS: IPRATROPIUM BROMIDE 0.02% 2.5 ML NEB NEB SCH (06:45)
[2018-12-09] MEDS: SALMETEROL/FLUTICASONE 500/50 INH SCH (06:48)
[2018-12-09 07:30] VITALS: BP 109/53
--- NOTE | 2018-12-09 08:09 | NUR ---
SPOKE WITH [facility] WEB PAGE DESIGNER WHOM UPSET BECAUSE LUCERO WAS DIRECTING CLINICALS TO WRONG BUILDING AND USAMA IS AN ADMIN FOR CORRECT BUILDING, BUT DID NOT SUBMIT. SHE STATES SHE WILL ADDRESS THIS TO AVOID FUTURE ISSUES WITH REFERRAL, SPOKE WITH PETRA AT [facility], CLINICALS SENT LAST NIGHT WERE MISSING INFORMATION, PROVIDED CORRECTED AND UPDATED CLINICALS TO FACILITY WAITING ON UPDATE, CONFIRMED RECEIPT OF UPDATED CLINICALS FROM PETRA.
[2018-12-09 08:25] VITALS: BP 109/53
[2018-12-09] MEDS: FUROSEMIDE 20 MG TAB PO SCH (08:25)
[2018-12-09] MEDS: METOPROLOL SUCCINATE 50 MG TAB XL PO SCH (08:25)
[2018-12-09] MEDS: CLOPIDOGREL BISULFATE 75 MG TAB PO SCH (08:25)
[2018-12-09] MEDS: LISINOPRIL 20 MG TAB PO SCH (08:25)
[2018-12-09] MEDS: SOLIFENACIN SUCCINATE 5 MG TAB PO SCH (08:25)
[2018-12-09] MEDS: DULOXETINE HCL 30 MG DELAYED RELEASE PO SCH (08:25)
[2018-12-09] MEDS: DOCUSATE SODIUM 100 MG CAP PO SCH (08:25)
[2018-12-09 10:55] VITALS: BP 106/56
--- NOTE | 2018-12-09 11:57 | NUR ---
PT ACCEPTED TO [facility] ROOM [address] HECTOR RODRIGUEZ[address]
--- NOTE | 2018-12-09 13:47 | NUR ---
CALL PLACED OUT TO DR. RAY- DR. RAY AWARE PATIENT IS REFUSING TO BE STRAIGHT CATH FOR URINE SAMPLE. ORDER TO OBTAIN URINE SAMPLE BY STRAIGHT CATH.
--- NOTE | 2018-12-09 13:48 | NUR ---
RECEIVED ORDER FROM DR. RAY TO TRANSFER PATIENT TO [facility] ONCE URINE SAMPLE AND BLOOD CULTURES ARE OBTAIN.
--- NOTE | 2018-12-09 14:34 | NUR ---
[facility]- SPOKE WITH NURSE MARTINES (WINDSOR), CRACKING MACHINE OPERATOR AT [phone]. PATIENT TRANSFERRING TO ROOM 208.
--- NOTE | 2018-12-09 14:44 | NUR ---
CALLED FACILITY AND ASKED ABOUT DR SINCE THEY ASSIGNED ANOTHER MD, LET KNOW DR RAY WAS UPSET AND REPORTING ME TO ADMINISTRATION, THEY STATE THE DOCTOR HAS CALLED THE BUILDING AND WILL FOLLOW THE PATIENT
[2018-12-09 14:45] LABS: BILIRUBIN,URINE NEGATIVE (NEGATIVE); CLARITY,URINE SL CLOUDY (CLEAR); COLOR,URINE YELLOW (YELLOW); KETONES,URINE NEGATIVE (NEGATIVE); LEUKOCYTE ESTERASE ,URINE TRACE (NEGATIVE); NITRITE,URINE NEGATIVE (NEGATIVE); PROTEIN,URINE DIPSTICK NEGATIVE (NEGATIVE); URINE UROBILINOGEN 0.2 mg/dL (0.2 - 1)
[2018-12-09 14:55] LABS: BACTERIA,URINE FEW /HPF; EPITHELIAL CELLS,URINE FEW /LPF; WBC,URINE (MAN) 0-5 /HPF (0-5)
--- NOTE | 2018-12-09 15:46 | NUR ---
CM SPOKE TO PATIENT AT BEDSIDE REGARDING IMM LETTER. IMM LETTER GIVEN WITH EXPLANATION BASED ON ANTICIPATED DISCHARGE DATE. ORIGINAL SIGNED AND PLACED IN CHART; COPY OF ORIGINAL DOCUMENT GIVEN TO PATIENT AT BEDSIDE AND PLACED IN CARE TRANSITION FOLDER. CM CONTACT INFORMATION GIVEN TO PATIENT FOR ANY NEEDS OR CONCERNS. PATIENT WITH NO FURTHER QUESTIONS.
--- NOTE | 2018-12-09 16:09 | NUR ---
PATIENT DISCHARGE/TRANSFER TO [facility] ROOM 208- PATIENT OFF THE UNIT AT 1428 PER STRETCHER BY EMS SERVICE. PATIENT IS IN STABLE CONDITION WITH NO S/S OF RESPIRATORY DISTRESS. NO PAIN VOICED. ROOM AIR. IV SALINE LOCKED. TRANSFER PACKET GIVEN TO EMS SERVICE WELL PERSONAL PATIENT'S ITEMS.
--- NOTE | 2018-12-09 23:22 | Discharge Summary ---
CONTINUATION OF DISCHARGE SUMMARY: This is continuation of imaging study reports with head CT done in the ER on December 05 with ASCVD, mild generalized volume loss. Small vessel ischemic changes. L-spine x-ray, DJD. C-spine MRI, no gross abnormality. Motion artifact. DJD. Foraminal stenosis, moderate, right C3-C4, bilateral C4-C5, right C5-C6, bilateral C6-C7. She had an MRI ordered by consulting neurologist (it was C-spine MRI), age-related mild generalized volume loss. Supratentorial, periventricular, and deep T2 FLAIR hyperintense foci nonspecific. Unusual for multiple sclerosis. Ultimately, the patient the day after admission was stable for discharge. As mentioned above, the discharge was authorized at that time. Discharge planning completed on December 09. The patient [facility]. See discharge med reconciliation list. FINAL IMPRESSION: Status post fall. Transiently altered mental status improved to baseline. The patient was on 2 opiates prior to admission as well as some tranquilizers. These are being held. Urinary tract infection. Degenerative joint disease, severe. As above. The patient remained on telemetry throughout her first 4 days here and normal sinus rhythm was the only rhythm. Chronic medical illnesses include mild dementia. Osteopenia. Hyperlipoproteinemia. Atherosclerosis. Hypothyroidism. Primary hypertension. Overactive bladder. Chronic obstructive pulmonary disease. MD KAVITHA Rasmussen/MYRNAL /[id number]
[2018-12-10] MEDS ORDERED: NITROFURANTOIN 50 MG CAP PO SCH (09:00)
--- NOTE | 2018-12-14 03:18 | Discharge Summary ---
HOSPITAL COURSE: The patient was hospitalized through the emergency room. She had been sent here from the [facility]. She had been found there on the floor in the room unresponsive. Thereafter, she wakened and was transiently confused. Database was obtained in the emergency room. The patient was hospitalized for reassessment and further observation. The family later related the patient had two or three similar admissions to the [facility] recently for the same difficulty and was diagnosed there as UTI. The patient remained on telemetry here. Sensorium and neurological status here remained stable, baseline. She experienced no fever or other symptoms suggestive of infectious disease. She was initiated on Merrem by ER physician and this was continued while here. Physical therapy was ordered when the patient was hospitalized. Discharge planning was ordered the day after the patient's arrival. Four days thereafter, the [facility] was [facility] as discharge planning had been arranged at that time. See also handwritten emergency room notes, ER dictation notes, handwritten history and physical, electronic medical record was also Neurology consultation. The patient declared she had multiple sclerosis, but there was no evidence of multiple sclerosis. No significant evidence of neuropathy. Vital signs remained normal. Prior workup had shown difficulty with thin liquids and the patient was ordered to avoid thin liquids while here. Orders were clarified daily. Admission PH 7.39, CO2 of 50, O2 of 79. White count on admission elevated at 13,100 with normal differential. White count fell on December 06 to 8.63 and remained normal. The patient's hemoglobin was 14.4, platelet count 216,000. PTT 19, PT 12. Urinalysis positive nitrite. White count 0 to 5, red count 0 to 5, leukocyte esterase trace positive. Drug screen positive for opiates. The patient had been prescribed both hydrocodone and tramadol by her primary care physician elsewhere prior to this admission. Cardiac enzymes and serum chemistries remain normal. Ammonia normal at 58. Natriuretic peptide 13. TSH normal at 0.5. Urine culture with Escherichia coli sensitive to all the quinolones and Macrodantin. ER blood cultures done. One culture negative. Second culture reported today with growth detected. Final culture pending. Followup blood cultures and urine cultures done on December 09 pending. The patient refused cath urine. Pelvis x-ray in the ER, no acute injury. Osteopenia. DJD hips. Pubic symphysis DJD. ORIF left hip. ER chest x-ray December 05, no acute abnormality. Biapical pleural opacity representing sequela of prior granulomatous disease. Subsegmental atelectasis. Cardiomediastinal silhouette unremarkable. C-spine CT, ER, December 05 limited by artifact, DJD, motion. DICTATION ENDS HERE Angel Smith MD KAVITHA/MODL /[id number]
== END 2018-12-09 15:47 ==
LOC: ER 09:46 → ERHOLD 12:44 → IMCU 13:10 → MED/SURG3 17:49
PROVIDERS: ADMIT Internal Medicine; ATTEND Internal Medicine
DX: N30.00 Acute cystitis without hematuria (principal); R41.82 Altered mental status, unspecified; I10 Essential (primary) hypertension; M81.0 Age-related osteoporosis without current pathological fracture; G35 Multiple sclerosis; G62.9 Polyneuropathy, unspecified; N32.81 Overactive bladder; Z87.891 Personal history of nicotine dependence; Z88.5 Allergy status to narcotic agent; Z88.0 Allergy status to penicillin; Z88.8 Allergy status to other drugs, medicaments and biological substances; Z88.6 Allergy status to analgesic agent; Z91.041 Radiographic dye allergy status; Z82.49 Family history of ischemic heart disease and other diseases of the circulatory system; E86.0 Dehydration; M47.9 Spondylosis, unspecified; E03.9 Hypothyroidism, unspecified; J44.9 Chronic obstructive pulmonary disease, unspecified; M85.80 Other specified disorders of bone density and structure, unspecified site; F03.90 Unspecified dementia, unspecified severity, without behavioral disturbance, psychotic disturbance, mood disturbance, and anxiety; Z91.81 History of falling
CPT/HCPCS: 36415 ×3; 36600; 70450; 70553; 71045; 72100; 72125; 72156; 72170; 80048; 80053 ×2; 80307; 80320; 80329 ×2; 81001 ×2; 82140; 82550 ×2; 82553 ×2; 82805; 83605; 83735; 83880; 84443; 84484 ×2; 85025 ×3; 85610; 85730; 87040 ×2; 87071; 87086 ×2; 87186; 87205; 92526 ×2; 92610; 92611; 93005; 94640 ×5; 94664 ×3; 97139 ×2; 97162; 97530 ×2; 99285; A9577; G0378 ×5; J2185 ×5; J7030